=== PATIENT | male | born 1960 | race Caucasian/White ===

== ENCOUNTER 2020-09-09 08:39 | Outpatient (REF) | payer BC, SELFPAY ==
--- NOTE | 2020-09-09 08:43 | CT_ITS ---
EXAMINATION: CT CHEST SCREENING CLINICAL INFORMATION: Nicotine dependence COMPARISON: CT chest 09/03/2019 TECHNIQUE: Multidetector volumetric CT imaging of the chest is performed without contrast using low dose technique. Additional 2D coronal and sagittal reformatted images and axial 3D maximum intensity projection (MIP) images are generated on the CT workstation. This CT examination was performed using dose optimization techniques as appropriate, variously including the following: *Automated exposure control *Adjustment of mA and/or kV according to patient size (this includes techniques or standardized protocols for targeted exams where dose is matched to indication/reason for exam; i.e. extremities or head) *Use of iterative reconstruction technique DLP: 53 mGy-cm FINDINGS: LUNGS: The lungs are well expanded and clear of acute pneumonic process. There are 1 mm scattered calcified granulomas most prominent in both lower lobes which are stable. No pulmonary nodule, mass or ground-glass density seen. MEDIASTINUM: The central trachea and the bronchi are widely patent. The thyroid lobes are symmetrical and normal. Heart size and the great vessels are normal caliber. No abnormal size mediastinal or hilar lymph nodes seen. There are coronary artery vascular calcifications. PLEURA: There is no pleural effusion. No pleural mass or thickening. AXILLA: No lymphadenopathy. UPPER ABDOMEN: Visualized liver, spleen, pancreas and bilateral adrenal glands are unremarkable. OSSEOUS STRUCTURES: No lytic or sclerotic process seen. CT/CT lung screening IMPRESSION: Stable tiny calcified pulmonary nodules. No new nodules or acute process seen. ASSESSMENT: Lung-RADS category 2: Benign RECOMMENDATION: Low dose annual CT screening
== END 2020-09-09 08:40 | disposition home or self-care (01) ==
LOC: HO.CT 08:39
PROVIDERS: Visit Provider Physician Assistant Medical
DX: Z12.2 Encounter for screening for malignant neoplasm of respiratory organs (principal); Z87.891 Personal history of nicotine dependence
CPT/HCPCS: 71271

== ENCOUNTER 2020-10-20 07:28 | Outpatient (REF) | payer BC, SELFPAY ==
[2020-10-20 11:24] LABS: MANUAL DIFF FLAG NO
[2020-10-20 11:32] LABS: Basophils Absolute Auto 0.1 X10*3/uL (0.0-0.2); Eosinophils Absolute Auto 0.2 X10*3/uL (0.0-0.4); Eosinophils Percent Auto 5.3 % (0-4); Hematocrit 41.6 % (42-52); Imm Gran Abs Auto 0.01 X10*3/uL (0.00-0.03); Imm Gran Pct Auto 0.2 % (0.0-0.4); Lymphocytes Absolute Auto 2.1 X10*3/uL (1.2-4.9); Lymphocytes Percent Auto 45.1 % (20-40); Mean Corpuscular HGB Conc 33.7 g/dl (31.0-36.0); Mean Corpuscular Hemoglobin 31.3 pg (27.0-33.0); Mean Corpuscular Volume 93.1 fL (80-98); Mean Platelet Volume 9.6 fL (9.4-12.4); Monocytes Absolute Auto 0.5 X10*3/uL (0.1-1.2); Monocytes Percent Auto 10.5 % (2-11); Neutrophils Absolute Auto 1.7 X10*3/uL (2.0-8.3); Neutrophils Percent Auto 36.9 % (45-73); Platelet Count 333 X10*3/uL (160-400); Red Blood Count 4.47 X10*6/uL (4.60-5.80); Red Cell Distribution Width 12.2 % (11.0-16.0); White Blood Count 4.6 X10*3/uL (4.8-10.8)
[2020-10-20 12:19] LABS: Alanine Aminotransferase 9 U/L (0-40); Albumin Level 4.4 g/dL (3.5-5.0); Alkaline Phosphatase 55 U/L (39-117); Anion Gap 13 (12-20); Aspartate Amino Transferase 15 U/L (5-37); Bilirubin Total 0.8 mg/dL (0.0-1.0); Blood Urea Nitrogen 14 mg/dL (9-16); Calcium 9.2 mg/dL (8.4-10.2); Carbon Dioxide 26 mmol/L (22-29); Chloride 107 mmol/L (96-108); Cholesterol 210 mg/dL; Estimated Glomerular Filt Rate > 60; Glucose Fasting 84 mg/dL (60-99); HDL Cholesterol 51 mg/dL; LDL Cholesterol Calculated 141 mg/dl; Potassium 4.9 mmol/L (3.3-5.1); Sodium 141 mmol/L (135-145); Total Protein 6.8 g/dL (6.5-8.0); Triglycerides 92 mg/dL
[2020-10-20 12:33] LABS: Free T4 (Free Thyroxine) 0.99 ng/dL (0.71-1.85); Thyroid Stimulating Hormone 1.05 uIU/mL (0.32-4.0)
== END 2020-10-20 07:29 | disposition home or self-care (01) ==
LOC: HO.MANLDS 07:28
PROVIDERS: PCP Internal Medicine; Visit Provider Physician Assistant
DX: E03.9 Hypothyroidism, unspecified (principal); E78.5 Hyperlipidemia, unspecified
CPT/HCPCS: 36415; 80053; 80061; 84439; 84443; 85025

== ENCOUNTER 2021-01-12 09:56 | Outpatient (REF) | payer BC, SELFPAY ==
[2021-01-12 11:18] LABS: MANUAL DIFF FLAG NO
[2021-01-12 11:29] LABS: Basophils Absolute Auto 0.1 X10*3/uL (0.0-0.2); Basophils Percent Auto 1.1 % (0-2); Eosinophils Absolute Auto 0.2 X10*3/uL (0.0-0.4); Hematocrit 42.1 % (42-52); Hemoglobin 14.3 g/dl (14.0-18.0); Imm Gran Abs Auto 0.01 X10*3/uL (0.00-0.03); Imm Gran Pct Auto 0.2 % (0.0-0.4); Lymphocytes Absolute Auto 2.1 X10*3/uL (1.2-4.9); Lymphocytes Percent Auto 37.4 % (20-40); Mean Corpuscular Volume 91.3 fL (80-98); Mean Platelet Volume 9.2 fL (9.4-12.4); Monocytes Absolute Auto 0.4 X10*3/uL (0.1-1.2); Monocytes Percent Auto 7.2 % (2-11); Neutrophils Absolute Auto 2.9 X10*3/uL (2.0-8.3); Neutrophils Percent Auto 50.1 % (45-73); Platelet Count 320 X10*3/uL (160-400); Red Blood Count 4.61 X10*6/uL (4.60-5.80); Red Cell Distribution Width 12.1 % (11.0-16.0); White Blood Count 5.7 X10*3/uL (4.8-10.8)
[2021-01-12 12:04] LABS: Alanine Aminotransferase 11 U/L (0-40); Albumin Level 4.5 g/dL (3.5-5.0); Alkaline Phosphatase 59 U/L (39-117); Amylase 66 U/L (28-100); Anion Gap 12 (12-20); Aspartate Amino Transferase 17 U/L (5-37); Bilirubin Direct 0.2 mg/dL (0.0-0.5); Bilirubin Total 0.6 mg/dL (0.0-1.0); Blood Urea Nitrogen 13 mg/dL (9-16); Calcium 9.4 mg/dL (8.4-10.2); Carbon Dioxide 24 mmol/L (22-29); Chloride 107 mmol/L (96-108); Estimated Glomerular Filt Rate > 60; Glucose Random 96 mg/dL (60-115); Iron 73 mcg/dL (45-160); Lipase 17 U/L (8-78); Percent Iron Saturation 24 % (15-50); Potassium 4.4 mmol/L (3.3-5.1); Sodium 139 mmol/L (135-145); Total Iron Binding Capacity 309 mcg/dL (228-428); Total Protein 6.9 g/dL (6.5-8.0); Unsaturated Iron Binding 236 ug/dL
[2021-01-12 12:29] LABS: Ferritin 250 ng/mL (20-250); Free T4 (Free Thyroxine) 0.98 ng/dL (0.71-1.85); Thyroid Stimulating Hormone 1.12 uIU/mL (0.32-4.0)
[2021-01-13 08:12] LABS: HBS Num1 0.29 mIU/mL (0-7.99); HBc Num1 0.14 S/CO (0.00-0.79); Hepatitis B Core Antibody Nonreactive (Nonreactive); ~Hepatitis B Surface Antibody NONREACTIVE (Nonreactive)
[2021-01-13 08:37] LABS: Hepatitis A Antibody IgM 0.16 Index (0-0.79); Hepatitis B Surface Antigen Negative (Negative); ~HepC Num1 0.12 S/CO (0.00-0.79); ~Hepatitis A Antibody IgM Nonreactive (Nonreactive); ~Hepatitis C Antibody Nonreactive (Nonreactive)
== END 2021-01-12 09:57 | disposition home or self-care (01) ==
LOC: HO.MANLDS 09:56
PROVIDERS: PCP Internal Medicine; Visit Provider Physician Assistant
DX: Z01.84 Encounter for antibody response examination (principal); R63.4 Abnormal weight loss; K21.9 Gastro-esophageal reflux disease without esophagitis
CPT/HCPCS: 36415; 80053; 80076; 82150; 82248; 82728; 83540; 83690; 84439; 84443; 85025; 86704; 86706; 86709; 86803; 87340

== ENCOUNTER 2021-11-02 09:23 | Outpatient (REF) | payer BC, SELFPAY ==
[2021-11-02 11:27] LABS: MANUAL DIFF FLAG NO
[2021-11-02 11:37] LABS: Basophils Absolute Auto 0.1 X10*3/uL (0.0-0.2); Basophils Percent Auto 1.3 % (0-2); Eosinophils Absolute Auto 0.3 X10*3/uL (0.0-0.4); Eosinophils Percent Auto 5.1 % (0-4); Hematocrit 43.7 % (42.0-52.0); Hemoglobin 14.7 g/dl (14.0-18.0); Imm Gran Abs Auto 0.01 X10*3/uL (0.00-0.03); Imm Gran Pct Auto 0.2 % (0.0-0.4); Lymphocytes Absolute Auto 2.2 X10*3/uL (1.2-4.9); Lymphocytes Percent Auto 41.1 % (20-40); Mean Corpuscular HGB Conc 33.6 g/dl (31.0-36.0); Mean Corpuscular Hemoglobin 30.8 pg (27.0-33.0); Mean Corpuscular Volume 91.6 fL (80.0-98.0); Mean Platelet Volume 9.3 fL (9.4-12.4); Monocytes Absolute Auto 0.4 X10*3/uL (0.1-1.2); Neutrophils Absolute Auto 2.3 x10*3/uL (2.0-8.3); Neutrophils Percent Auto 44.3 % (45-73); Platelet Count 357 X10*3/uL (160-400); Red Blood Count 4.77 X10*6/uL (4.60-5.80); Red Cell Distribution Width 12.4 % (11.0-16.0); White Blood Count 5.3 X10*3/uL (4.8-10.8)
[2021-11-02 11:50] LABS: Alanine Aminotransferase 9 U/L (0-40); Albumin Level 4.6 g/dL (3.5-5.0); Alkaline Phosphatase 63 U/L (39-117); Anion Gap 12 (12-20); Aspartate Amino Transferase 17 U/L (5-37); Bilirubin Total 0.8 mg/dL (0.0-1.0); Blood Urea Nitrogen 17 mg/dL (9-16); Calcium 10.1 mg/dL (8.4-10.2); Carbon Dioxide 29 mmol/L (22-29); Chloride 104 mmol/L (96-108); Estimated Glomerular Filt Rate > 60; Glucose Random 91 mg/dL (60-115); Potassium 4.6 mmol/L (3.3-5.1); Sodium 140 mmol/L (135-145); Total Protein 7.2 g/dL (6.5-8.0)
[2021-11-02 12:20] LABS: Free T4 (Free Thyroxine) 1.02 ng/dL (0.71-1.85); Prostate Specific Antigen 1.82 ng/mL (<0.05-4.0); Thyroid Stimulating Hormone 0.94 uIU/mL (0.32-4.0)
== END 2021-11-02 09:24 | disposition home or self-care (01) ==
LOC: HO.MANLDS 09:23
PROVIDERS: PCP Physician Assistant; Visit Provider Physician Assistant
DX: E03.8 Other specified hypothyroidism (principal); N40.1 Benign prostatic hyperplasia with lower urinary tract symptoms; N13.8 Other obstructive and reflux uropathy; E78.2 Mixed hyperlipidemia; Z12.5 Encounter for screening for malignant neoplasm of prostate
CPT/HCPCS: 36415; 80053; 84153; 84439; 84443; 85025

== ENCOUNTER 2022-02-08 10:25 | Outpatient (REF) | payer BC, SELFPAY ==
[2022-02-08 12:55] LABS: MANUAL DIFF FLAG NO
[2022-02-08 12:57] LABS: Basophils Absolute Auto 0.1 X10*3/uL (0.0-0.2); Basophils Percent Auto 1.1 % (0-2); Eosinophils Absolute Auto 0.2 X10*3/uL (0.0-0.4); Eosinophils Percent Auto 4.1 % (0-4); Hemoglobin 14.5 g/dl (14.0-18.0); Imm Gran Abs Auto 0.01 X10*3/uL (0.00-0.03); Imm Gran Pct Auto 0.2 % (0.0-0.4); Lymphocytes Absolute Auto 2.1 X10*3/uL (1.2-4.9); Lymphocytes Percent Auto 40.2 % (20-40); Mean Corpuscular Hemoglobin 30.6 pg (27.0-33.0); Mean Corpuscular Volume 92.8 fL (80.0-98.0); Mean Platelet Volume 9.4 fL (9.4-12.4); Monocytes Absolute Auto 0.4 X10*3/uL (0.1-1.2); Monocytes Percent Auto 7.5 % (2-11); Neutrophils Absolute Auto 2.5 x10*3/uL (2.0-8.3); Neutrophils Percent Auto 46.9 % (45-73); Platelet Count 343 X10*3/uL (160-400); Red Blood Count 4.74 X10*6/uL (4.60-5.80); Red Cell Distribution Width 12.2 % (11.0-16.0); White Blood Count 5.3 X10*3/uL (4.8-10.8)
[2022-02-08 13:07] LABS: Alanine Aminotransferase 13 U/L (0-40); Albumin Level 4.6 g/dL (3.5-5.0); Alkaline Phosphatase 59 U/L (39-117); Anion Gap 13 (12-20); Aspartate Amino Transferase 17 U/L (5-37); Bilirubin Total 0.6 mg/dL (0.0-1.0); Blood Urea Nitrogen 13 mg/dL (9-16); C Reactive Protein 0.03 mg/dL (< or = 0.50); Calcium 10.1 mg/dL (8.4-10.2); Carbon Dioxide 27 mmol/L (22-29); Chloride 105 mmol/L (96-108); Estimated Glomerular Filt Rate > 60; Glucose Random 96 mg/dL (60-115); Potassium 5.2 mmol/L (3.3-5.1); Sodium 140 mmol/L (135-145)
[2022-02-08 13:27] LABS: Free T4 (Free Thyroxine) 1.03 ng/dL (0.71-1.85); Thyroid Stimulating Hormone 0.87 uIU/mL (0.32-4.0)
[2022-02-08 13:47] LABS: Erythrocyte Sedimentation Rate 2 MM/HR (0-15)
[2022-02-08 14:06] LABS: Estimated Average Glucose 111 mg/dL; Hemoglobin A1c % 5.5 %
[2022-02-09 15:47] LABS: Calcium (PTHI) 10.1 mg/dL (8.6-10.3); PTHI 69 pg/mL (16-77)
[2022-02-14 15:46] LABS: Testosterone, Free 64.3 pg/mL (35.0-155.0); Testosterone, Total 473 ng/dL (250-1100)
== END 2022-02-08 10:26 | disposition home or self-care (01) ==
LOC: HO.MANLDS 10:25
PROVIDERS: Visit Provider Physician Assistant
DX: R63.4 Abnormal weight loss (principal)
CPT/HCPCS: 36415; 80053; 83036; 83970; 84402; 84403; 84439; 84443; 85025; 85652; 86140

== ENCOUNTER 2022-03-22 08:26 | Outpatient (REF) | payer BC, SELFPAY ==
[2022-03-22 12:07] LABS: Vitamin B12 161 pg/mL (200-900)
== END 2022-03-22 08:27 | disposition home or self-care (01) ==
LOC: HO.MANLDS 08:26
PROVIDERS: PCP Internal Medicine; Visit Provider Internal Medicine
DX: R53.1 Weakness (principal); R20.0 Anesthesia of skin; R51.9 Headache, unspecified
CPT/HCPCS: 36415; 82550; 82607

== ENCOUNTER 2022-05-25 09:37 | Outpatient (REF) | payer BC, SELFPAY ==
[2022-05-25 12:03] LABS: Blood Urea Nitrogen 11 mg/dL (9-16); Estimated Glomerular Filt Rate > 60
[2022-05-25 12:28] LABS: Prostate Specific Antigen 1.58 ng/mL (<0.05-4.0)
[2022-05-25 13:10] LABS: Folate 16.7 ng/mL (> or = 4.0); Vitamin B12 484 pg/mL (200-900)
== END 2022-05-25 09:38 | disposition home or self-care (01) ==
LOC: HO.MANLDS 09:37
PROVIDERS: Urology; Visit Provider Physician Assistant
DX: Z12.5 Encounter for screening for malignant neoplasm of prostate (principal); E53.8 Deficiency of other specified B group vitamins; N40.1 Benign prostatic hyperplasia with lower urinary tract symptoms; R31.0 Gross hematuria
CPT/HCPCS: 36415; 82565; 82607; 82746; 84153; 84520

== ENCOUNTER 2022-06-28 10:09 | Outpatient (REF) | payer BC, SELFPAY ==
[2022-06-28 11:20] LABS: MANUAL DIFF FLAG NO
[2022-06-28 11:57] LABS: Basophils Absolute Auto 0.1 X10*3/uL (0.0-0.2); Basophils Percent Auto 1.8 % (0-2); Eosinophils Absolute Auto 0.1 X10*3/uL (0.0-0.4); Eosinophils Percent Auto 3.6 % (0-4); Hematocrit 39.3 % (42.0-52.0); Hemoglobin 13.1 g/dl (14.0-18.0); Imm Gran Abs Auto 0.01 X10*3/uL (0.00-0.03); Imm Gran Pct Auto 0.3 % (0.0-0.4); Lymphocytes Absolute Auto 1.7 X10*3/uL (1.2-4.9); Lymphocytes Percent Auto 42.3 % (20-40); Mean Corpuscular HGB Conc 33.3 g/dl (31.0-36.0); Mean Corpuscular Hemoglobin 30.5 pg (27.0-33.0); Mean Corpuscular Volume 91.4 fL (80.0-98.0); Mean Platelet Volume 9.2 fL (9.4-12.4); Monocytes Absolute Auto 0.4 X10*3/uL (0.1-1.2); Monocytes Percent Auto 10.2 % (2-11); Neutrophils Absolute Auto 1.6 x10*3/uL (2.0-8.3); Neutrophils Percent Auto 41.8 % (45-73); Platelet Count 350 X10*3/uL (160-400); Red Cell Distribution Width 12.5 % (11.0-16.0); White Blood Count 3.9 X10*3/uL (4.8-10.8)
[2022-06-28 12:02] LABS: Magnesium 2.1 mg/dL (1.6-2.6)
[2022-06-28 12:26] LABS: Ferritin 226 ng/mL (20-250); Vitamin D 25-OH Total 36.7 ng/mL (>30)
[2022-06-28 12:41] LABS: Folate 14.5 ng/mL (> or = 4.0); Vitamin B12 518 pg/mL (200-900)
[2022-07-01 05:02] LABS: Zinc 65 mcg/dL (60-130)
[2022-07-01 18:32] LABS: Beta-Gamma Tocopherol 1.8 mg/L (<=4.3)
[2022-07-05 17:32] LABS: Vitamin A 57 mcg/dL (38-98)
== END 2022-06-28 10:10 | disposition home or self-care (01) ==
LOC: HO.MANLDS 10:09
PROVIDERS: PCP Internal Medicine; Referring Provider Physician Assistant; Visit Provider Internal Medicine
DX: D51.0 Vitamin B12 deficiency anemia due to intrinsic factor deficiency (principal); K29.40 Chronic atrophic gastritis without bleeding; R63.4 Abnormal weight loss; K90.9 Intestinal malabsorption, unspecified
CPT/HCPCS: 36415; 82306; 82607; 82728; 82746; 83735; 84446; 84590; 84630; 85025

== ENCOUNTER 2024-10-09 11:28 | Outpatient (REF) | payer BC, SELFPAY ==
--- OUTSIDE RECORDS SUMMARY | 2024-10-09 13:23 | XMS_ITS | Data Portability ---
Author Organization [facility] Home Service Address [address] [place] [address] Assessment No assessment recorded. Plan of Treatment Reminders Order Date Submit Date Provider Last Modified By Organization Details Last Modified Time Details Appointments ANNUAL EXAM 2024 09:00A JOSTIN DORMAN Not available Not available Not available Lab CMP, serum or plasma 2021 [facility], [address] [place] [address], [id number], 11/03/2021 13:08:24 CBC w/ auto diff 2021 [facility], [address] [place] [address], [id number], 11/02/2021 09:15:27 TSH + free T4, serum 2021 [facility], [address] [place] [address], [id number], 11/02/2021 09:15:26 PSA, serum or plasma 2021 [facility], [address] [place] [address], [address], 11/02/2021 09:15:26 CMP, serum or plasma 2021 [facility], [address] [place] [address], [address], 02/09/2022 12:32:31 CBC w/ auto diff 2021 [facility], [address] [place] [address], [address], 02/09/2022 12:32:31 TSH + free T4, serum 2021 [facility], [address] [place] [address], [address], 02/09/2022 12:32:31 HbA1c (hemoglob in A1c), blood 2021 [facility], [address] [place] [address], [address], 02/08/2022 10:15:26 testoster one, free + total, serum 2021 [facility], [address] [place] [address], 35[address], 02/15/2022 11:51:51 ESR (erythroc yte sedimenta tion rate), blood 2021 [facility], [address] [place] [address], [address], 02/08/2022 10:15:26 C-reactiv e protein, quantitat justus, serum or plasma 2021 [facility], [address] [place] [address], [address], 02/08/2022 10:15:26 PTH (parathyr oid hormone), intact + calcium, serum or plasma 2021 [facility], [address] [place] [address], [address], 02/10/2022 12:06:48 iron + TIBC + ferritin, serum 2023 024 [email or web address] [facility], [address] [place] [address], 88[address], 10/09/2023 09:21:28 lipid panel, blood 2023 024 [facility], [address] [place] [address], [address], 10/12/2023 12:54:56 HbA1c (hemoglob in A1c), blood 2023 024 [facility], [address], [address], [place], [address], 10/09/2023 09:21:30 CBC w/ auto diff 2023 024 [facility], [address] [place] [address], [place], [address], 10/12/2023 12:27:45 CMP, serum or plasma 2023 024 [facility], [address] [place] [address], [address], 10/12/2023 14:15:27 TSH + free T4, serum 2023 024 [facility], [address] [place] [address], [address], 10/09/2023 09:21:28 Referral physical therapist referral 2021 022 [facility], [address] [place] [address], [address], 11/03/2021 09:08:49 Procedures None recorded. Surgeries None recorded. Imaging XR, chest, 2 view 2021 022 [facility], [address] [place], [address], 02/10/2022 11:22:58 CT, abdomen + pelvis, w/o contrast 2021 022 [email or web address] 10 [facility], [address], [address], 03/07/2022 08:17:19 XR, hip, unilatera l, 2 or 3 view - right hip 2022 023 [facility], [address] [place], [address], 03/01/2023 08:50:55 XR, lumbosacr al spine, 4 or more view [address] [facility], [address] [place], [address], 10/23/2023 08:19:39 LDCT, chest, for lung cancer screening - needs routine screening given smoking hx 20+ years quit at 50 y/o [address] [facility], [address] [place], [address], 10/11/2023 14:47:26 Medication Orders levothyro xine 88 mcg tablet [address] [facility], [address] [place], [address], 11/02/2021 09:09:18 tamsulosi n 0.4 mg capsule [address] [facility], [address] [place], [address], 02/16/2022 09:14:02 Patient TargetsNo targets recorded. Patient InstructionsNo instructions recorded. Reason for Referral Physical Therapist Referral for Bilateral shoulder joint pain bilateral shoulder pain due to OA Referring Physician: Eusebia Mccurdy, Internal Medicine, Encounter Date: 11/02/2021 Results Created Date Observation Date Name Description Value Unit Range Abnormal Flag Note LastModifiedBy Organization Detail LastModifiedTime 02/11/2002/10/2022 XR, chest , 2 view No observ ation record ed. [email or web address] [facility] [address] [place], [address], 02/10/2022 18:34:16 03/13/20 22 03/11/2022 nerve condu ction study No observ ation record ed. [facility] [address], [place], [address], 03/14/2022 09:05:43 03/01/20 23 03/01/2023 XR, hip, unila teral , 2 or 3 view No observ ation record ed. [facility] [address], [place], [address], 03/01/2023 13:26:14 08/24/20 23 08/19/2023 MRI, prost ate, w/ contr ast No observ ation record ed. [facility] ([facility]) [address], [place], [address], 08/25/2023 08:34:27 12/05/19 24 12/05/2023 LDCT, chest , for lung cance r scree axel No observ ation record ed. [email or web address] [facility] [address], [place], [address], 12/05/2023 15:26:48 Result Notes None recorded. Problems Name Problem SNOMED Code Status Onset Date Resolution Date Notes Provider Name and Address Organization Details Recorded Time Hyperthy roidism 63195714 Active 2020 Grave's disease treated in 2005 Not Available [facility] 3 12:28:55 Adrenal mass 914725837 Active 2020 Not Available [facility] 3 12:28:55 Rosacea 050501610 Active 2020 in his eyes Not Available [facility] 3 12:28:55 Unintent ional weight loss 430743268 Active 2020 onset 10/03/17 Not Available [facility] 3 12:28:55 Hyperlip idemia 92175927 Active 2020 Not Available [facility] 3 12:28:55 Hypothyr oidism 87129679 Active 2020 [facility] Available [facility] 12:28:55 Benign prostati c hyperpla anselmo 535892612 Active 2020 Not Available [facility] 3 12:28:55 Migraine 88759141 Active 2020 with aura Not Available [facility] 3 12:28:55 Idiopath ic hypotens ion 463783299 Active 2020 intermitt ent Not Available [facility] 3 12:28:54 Adenomat ous polyp of colon 626547978 Active 2020 High risk cancer screening per patient Not Available [facility] 3 12:28:55 Abnormal weight loss 545128876 Active 2021 Not Available [facility] 3 12:28:55 Unexplai amor weight loss 791017058 Active 2021 Not Available [facility] 3 12:28:55 Joselo hematuri a 198614697 Active 2021 Not Available [facility] 3 12:28:54 Cobalami n deficien cy 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 Active 2021 Not Available [facility] 3 12:28:54 Pain in right hip joint 06388413794 9102 Active 2022 Not Available [facility] 3 12:28:55 Arthriti s of right hip 48157213998 27050 Active 2022 Not Available [facility] 3 12:28:54 Hemorrho ids 76293768 Active 2022 JOSTIN HERNANDEZ [address] [place], [address], [facility] 3 12:16:06 Night sweats 30305678 Active 2023 JOSTIN HERNANDEZ [address] [place], [address], [facility] 4 09:02:17 Intolera nt of cold 97314158 Active 2023 JOSTIN HERNANDEZ [address] [place], [address], [facility] 4 09:10:23 Bilatera l sacral insuffic iency fracture 59374074257 088426 Active 2023 JOSTIN HERNANDEZ [address] [place], [address], [facility] 4 09:17:21 Candidia sis of skin 60022906 Active 2023 JOSTIN HERNANDEZ [address] [place], [address], [facility] 4 15:36:13 Pain of bilatera l knee joints 54529547825 4104 Active 2023 JOSTIN HERNANDEZ [address] [place], [address], [facility] 4 14:57:39 Problem Notes None recorded. Procedures Surgical History Date Name Laterality Status Provider Name and Address Organization Details Recorded Time repair of umbilical hernia completed Loripeter Kemp [facility] 09/09/2020 16:41:47 Gastrointestinal Surgery [facility]16[facility] 10:37:00 Thyroid Surgery completed Loripeter Kemp [facility] 09/16/2020 10:37:00 Tonsillectomy completed Loripeter Kemp [facility] 09/16/2020 10:37:00 Hernia Repair completed Loripeter Kemp [facility] 09/16/2020 10:37:00 Appendectomy completed Loripeter Kemp [facility] 09/16/2020 10:37:00 Laparoscopy completed Lori Kemp [facility] 09/16/2020 10:37:00 Colonoscopy completed Loripeter Kemp [facility] 09/16/2020 10:37:00 Eye Surgery completed [facility] Justo [facility] 09/16/2020 10:37:00 Imaging Results Imaging Date Name Status LastModified by Organiz ation Details LastModified Time 02/10/2022 XR, chest, 2 view completed [email or web address] [facility] [address] [place], [address], 02/10/2022 18:34:16 03/11/2022 nerve conduction study completed [facility] [address], [place], [address], 03/14/2022 09:05:43 03/01/2023 XR, hip, unilateral, 2 or 3 view completed [facility] [address] [place], [address], 03/01/2023 13:26:14 08/19/2023 MRI, prostate, w/ contrast completed [facility] ([facility]) [address] [place], [address], 08/25/2023 08:34:27 12/05/2023 LDCT, chest, for lung cancer screening completed [email or web address] [facility] [address], [place], [address], 12/05/2023 15:26:48 Procedure Notes None recorded. Medical Equipment None Reported. Allergies No known drug allergies Medications Name Sig Start Date Stop Date Status Note LastModified by Organization Details LastModified Time ivermectin 3 mg tablet TAKE 4 TABLETS BY MOUTH AT ONCE active Not Available Not Available No t Available meloxicam 15 mg tablet TAKE 1 TABLET EVERY DAY BY ORAL ROUTE WITH MEAL(S) FOR 30 DAYS, FOR KNEE PAIN. 2023 active Not Available Not Available Not Avai lable doxycycline hyclate 50 mg capsule TAKE 1 CAPSULE BY MOUTH ONCE DAILY WITH FOOD & WATER FOR 2 MONTHS AT ONSET OF FLARE. active Not Available Not Available No t Available ciprofloxac in 500 mg tablet TAKE 1 TABLET BY MOUTH EVERY MORNING AND EVERY EVENING 10/09 completed Not Available Not Available Not Available levothyroxi ne 88 mcg tablet TAKE 1 TABLET BY MOUTH EVERY DAY 2023 active Not Available Not Available Not Avai lable tamsulosin 0.4 mg capsule Take 1 capsule every day by oral route for 30 days. 02/16 completed Not Available Not Available Not Available doxycycline monohydrate 100 mg capsule TAKE 1 CAPSULE BY MOUTH TWICE A DAY FOR 10 DAYS 10/09 completed Not Available Not Available Not Available clotrimazol e-betametha sone 1 %-0.05 % topical cream PLEASE SEE ATTACHED FOR DETAILED DIRECTION S active Not Available Not Available No t Available metronidazo le 0.75 % topical cream APPLY TWICE DAILY TO ENTIRE FACE FOR ROSACEA. 03/27 completed Not Available Not Available Not Available finasteride 5 mg tablet TAKE 1 TABLET BY MOUTH EVERY DAY active Not Available Not Available No t Available oxycodone 5 mg tablet TAKE 1 TABLET (5 MG TOTAL) BY MOUTH EVERY 6 HOURS NEEDED (PARTIAL FILL OKAY) 02/27 completed Not Available Not Available Not Available alfuzosin ER 10 mg tablet,exte nded release 24 hr TAKE 1 TABLET BY MOUTH EVERYDAY AT BEDTIME active Not Available Not Available No t Available Vitamin C 500mg bid active Not Available Not Available Not Available Vitamin D3 1000 unit bid in the winter active Not Available Not Available No t Available Xifaxan 550 mg tablet TAKE 1 TABLET BY MOUTH THREE TIMES A DAY FOR 2 WEEKS 02/27 completed Not Available Not Available Not Available Afluria Qd 2019- (36 mos up)(PF)60 mcg (15 mcg x4)/0.5 mL IM syringe PHARMACY ADMINIST[facility] 01/12 completed Not Available Not Available Not Available Vitals Date Recorded Body height Body mass index (BMI) Body weight Heart rate Oxygen saturation Oxygen saturation in Arterial blood by Pulse oximetry Systolic blood pressure Diastolic blood pressure Provider Name and Address Organization Details Last Updated DateTime 1 181.61 cm 24 kg/m2 09287.2 3 g 57 /min 98 % 98 % 120 mm[Hg] 74 mm[Hg] Yaniv Choe, DO [address] [place], [address] [place] - [facility] 1 09:28:38 Date Recorded Body height Body mass index (BMI) Body weight Oxygen saturation Oxygen saturation in Arterial blood by Pulse oximetry Heart rate Systolic blood pressure Diastolic blood pressure Provider Name and Address Organization Details Last Updated DateTime 2 181.61 cm 23.4 kg/m2 91867.7 g 98 % 98 % 64 /min 128 mm[Hg] 70 mm[Hg] Rose Boyd [facility] 2 09:02:07 Date Recorded Body height Body mass index (BMI) Body weight Oxygen saturation Oxygen saturation in Arterial blood by Pulse oximetry Heart rate Systolic blood pressure Diastolic blood pressure Provider Name and Address Organization Details Last Updated DateTime 2 181.61 cm 23 kg/m2 08529.9 3 g 98 % 98 % 72 /min 120 mm[Hg] 78 mm[Hg] Rose Boyd [facility] 2 09:50:27 Date Recorded Body height Body mass index (BMI) Body weight Heart rate Oxygen saturation Oxygen saturation in Arterial blood by Pulse oximetry Systolic blood pressure Diastolic blood pressure Provider Name and Address Organization Details Last Updated DateTime 3 167.64 cm 27 kg/m2 54460.9 3 g 66 /min 97 % 97 % 120 mm[Hg] 80 mm[Hg] Masha Merino [facility] 3 10:43:45 Date Recorded Body height Body mass index (BMI) Body weight Heart rate Oxygen saturation Oxygen saturation in Arterial blood by Pulse oximetry Systolic blood pressure Diastolic blood pressure Provider Name and Address Organization Details Last Updated DateTime 4 167.64 cm 28.2 kg/m2 36386.6 6 g 62 /min 98 % 98 % 130 mm[Hg] 68 mm[Hg] Masha Merino [facility] 4 08:58:50 Social History Question Answer Notes LastModified by Organizat ion Details LastModified Time Tobacco Smoking Status Former Smoker Lori garcia [facility] 09/16/2020 10:36:52 What Is Your Level Of Alcohol Consumption? Moderate Information not available 09/16/2020 Are You Blind Or Do You Have Difficulty Seeing? No Information not available 09/16/2020 What Is Your Level Of Caffeine Consumption? Moderate Information not available 09/16/2020 How Much Tobacco Do You Chew? None Information not available 09/16/2020 Are You Currently Employed? Yes Information not available 09/16/2020 Are You Deaf Or Do You Have Serious Difficulty Hearing? No Information not available 09/16/2020 What Type Of Diet Are You Following? REGULAR Information not available 09/16/2020 Which Illicit Or Recreational Drugs Have You Used? Used To Information not available 09/16/2020 Education 12 [email or web address] Information not available 02/08/2022 What Is Your Occupation? Retired But [employer] Information not available 09/16/2020 How Many Days Of Moderate To Strenuous Exercise, Like A Brisk Walk, Did You Do In The Last 7 Days? 7 Information not available 09/16/2020 On Those Days That You Engage In Moderate To Strenuous Exercise, How Many Minutes, On Average, Do You Exercise? 80 Information not available 09/16/2020 Are There Any Guns Present In Your Home? No Information not available 09/16/2020 Hard Of Hearing Or Deaf In One Or Both Ears? No [email or web address] Information not available 02/08/2022 Live Alone Or With Others? With Others [email or web address] Information not available 02/08/2022 What Was The Date Of Your Most Recent Tobacco Screening? 10/09/2023 Information not available 10/09/2023 How Many Children Do You Have? 0 Information not available 09/16/2020 Performs Monthly Self-breast Exam? No [email or web address] Information no t available 02/08/2022 Seat Belts Used Routinely Yes [email or web address] Information not available 02/08/2022 Are You Sexually Active? Yes Information not available 09/16/2020 Smoke Alarm In Home Yes [email or web address] Information not available 02/08/2022 At What Age Did You Start Smoking Tobacco? 13 Information not available 09/16/2020 Are You Passively Exposed To Smoke? No Information no t available 09/16/2020 How Much Tobacco Do You Smoke? No Information not available 09/16/2020 General Stress Level Medium [email or web address] Information not available 02/08/2022 Do You Use Sunscreen Routinely? No Information not available 09/16/2020 How Many Years Have You Smoked Tobacco? 37 Information not available 09/16/2020 Do You Or Have You Ever Used Any Other Forms Of Tobacco Or Nicotine? No [email or web address] Information not available 10/09/2023 Sex: Unknown Functional Status Question Answer Note LastModified by Organizat ion Details LastModified Time Do you have difficulty walking or climbing stairs? No Information not available 09/16/2020 Are you able to walk? YESWOREST Information not available 09/16/2020 Do you have difficulty doing errands alone? No Information not available 09/16/2020 Are you able to care for yourself? Yes Information not available 09/16/2020 Do you have difficulty dressing or bathing? No Information not available 09/16/2020 What is your exercise level? Moderate Information not available 09/16/2020 Mental Status Question Answer Note LastModified by Organization D etails LastModified Time Do you have difficulty concentrating, remembering or making decisions? No Information no t available 09/16/2020 Family History Relationship Description Onset Age of this Age Resolved Age Notes LastModified by Organization Details LastModified Time Mother Glaucoma [email or web address] Not available 0 09/16/2020 10:36:33 Mother Malignant tumor of lung [email or web address] Not available 2020 10:36:33 Father Alcoholism [email or web address] Not available 09/16/2020 10:36:33 Medical History Condition Response Other Y Vision or Eye Problems Y High Cholesterol Y Headaches Y Thyroid Problems Y Reflux/GERD Y Immunizations Vaccine Type Date Status Note Provider Nam e and Address Organization Details Recorded Time zoster recombinant 2 completed Kami garcia [facility] 02/08/2022 09:43:46 COVID-19, mRNA, LNP-S, PF, 30 mcg/0.3 mL dose 1 completed Kami garcia [facility] 02/08/2022 09:43:46 COVID-19, mRNA, LNP-S, PF, 30 mcg/0.3 mL dose 1 erasmo garcia [facility] 02/08/2022 09:43:46 COVID-19, mRNA, LNP-S, PF, 100 mcg/0.5mL dose or 50 mcg/0.25mL dose 1 [facility] 09:43:46 Influenza, split virus, quadrivalent, preservative 9 completed Kami garcia, [facility] 02/08/2022 09:43:46 Influenza, split virus, quadrivalent, preservative 0 completed Kami garcia, [facility] 02/08/2022 09:43:46 Influenza, split virus, quadrivalent, preservative 1 [facility]/08/2022 09:43:46 Td(adult) unspecified formulation 1 [facility] 02/08/2022 09:43:46 zoster, unspecified formulation 2 [facility] 02/08/2022 09:43:46 Influenza, split virus, quadrivalent, preservative 2 completed Yaniv Choe, [address] [place] [address], [address], [facility] 06/09/2022 20:30:02 COVID-19, mRNA, LNP-S, PF, 100 mcg/0.5mL dose or 50 mcg/0.25mL dose 2 completed Yaniv Choe DO [address] [place] [address], [address], [facility] 06/09/2022 20:30:13 influenza nasal, unspecified formulation 3 completed [facility] 05/02/2023 13:24:19 influenza, unspecified formulation 4 [facility] 05/15/2024 14:30:53 Tdap 2 [facility]/09/2020 16:34:38 Past Encounters Encounter ID Performer Location Encounter Start Date Encounter Closed Date Diagnosis/Indication Diagnosis SNOMED-CT Code Diagnosis ICD10 Code Diagnosis Note [id number] JOSTIN HERNANDEZ [facility] [address] [address] 09/16/2020 10:12:06 09/16/2020 11:23:34 Fatigue 04082604 R53.83 will assess if related to sleep apnea given symptoms and presentati on will fu after results Hypothyroidism 96368005 E03.9 hx of thyroid issues due to grave's and subsequent removal of his thyroid in total Adrenal mass 835336395 R 19.09 benign adrenal mass found incidental on scan for other concern no changes or concerns from previous doctor no interventi on needed at this time Hyperlipidemia 88472279 E78.5 needs follow up labs does not do well on statin medication due to side effects so usually just monitors it patient would rather not be on medication Benign pro static hyperplasia 628093289 N40.1 frequent urination, discussed medication options and meanings related to possible BPH the patient will think about this and let me know if he is interested in medication s or seeing urology [id number] JOSTIN HERNANDEZ [facility] [address] [address] 01/12/2021 09:22:05 01/12/2021 13:34:59 Unintentional weight loss 926717834 R63.4 will fu with complete work up Gastroesop hageal reflux disease 087512067 K21.9 will fu with labs Epigastric pain 74172468 R10.13 will fu with US and breath test given symptoms [id number] Yaniv Choe DO [facility] [address] [address] 03/16/2021 09:23:30 03/16/2021 10:29:45 Active or passive immunization 502454509 Z23 utd Adult heal th examination 547427850 Z00.00 stable and doing well as he is very active [id number] JOSTIN HERNANDEZ [facility] [address] [address] 11/02/2021 08:54:50 11/02/2021 13:39:11 Hypothyroidism 26000534 E03.8 will fu with lab work Benign pro static hyperplasia 773183762 N40.1 frequent urination, discussed medication options and meanings related to possible BPH the patient will think about this and let me know if he is interested in medication s or seeing urology Hyperlipidemia 43261970 E78.2 will fu with lab work Bilateral shoulder joint pain 6665517308 2581178 M25.512 [place] [id number] JOSTIN HERNANDEZ [facility] [address] [facility] [address] [address] 02/08/2022 09:41:37 02/08/2022 10:19:14 Unintentional weight loss 524069182 R63.4 will fu with full weight loss panelmay also need work up for possible MS given muscle wasting, weakness Benign pro static hyperplasia 362476226 N40.1 will given flomax a try [id number] JOSTIN HERNANDEZ [facility] [address] [facility] [address] [address] 02/27/2023 10:37:40 02/27/2023 11:05:13 Pain in right hip joint 4775105972 26893 M25.551 will set up with XR to determine the cause of his painddx listed in HPIno other questions [id number] JOSTIN HERNANDEZ [facility] [address] [facility] [address] [place] [address] 10/09/2023 08:52:15 10/09/2023 11:14:37 Night sweats [id number] R61 possible issue with thyroid dosing Adult heal th examination [id number] Z00.00 stable BP Intolerant of cold 39041 000 R68.89 will set up with lab work for cold Bilateral sacral insufficiency fracture [id number] M84.38XA will fu with XR Ex-smoker [id number] Z87.89 1 due for screening Health Concerns Section Related Observation LastModified by Organization Detai ls LastModified Time None Recorded Concern Status LastModified by Organization Details LastModified Time None Recorded Advance Directives Directive None Recorded Payers Encounter Date Sequence Insurance Name Policy Number Policy Cook Covered Member ID Cook Member ID Guarantor Name 03/16/2021 1 [place] [facility] [place] [id number] Warren Chávez Amberly [id number] Warren J Amberly 11/02/2021 1 [place] [facility] [place] [id number] Warren Chávez Amberly [id number] Warren J Amberly 02/08/2022 1 [place] [facility] [place] [id number] Warren Chávez Amberly [id number] Warren J Amberly 02/27/2023 1 [place] [facility] [place] [id number] Warren Chávez Amberly [id number] Warren J Amberly 10/09/2023 1 [place] [facility] [place] [id number] Warren Chávez Amberly [id number] Warren Chávez Amberly Notes Date Note Type Note Provider Name a wi Address Organization Details Recorded Time 1 text/html Annual WellnessReported bypatient.Diet and Nutrition:healthy diet Fracture Risk:no history of fractures; no recent explained fracture; no sudden unexplained fractures; no previous musculoskeletal injuries Physical Activity:exercises on a regular basis; recent increase in physical activity; good physical condition Additional Lifestyle Factors:no tobacco use; no alcohol intake; stopped drinking alcohol Depression Risk:never feels sad, empty, or tearful; no loss of interest in activities; no significant changes in weight; no sleep disturbances or insomnia; no agitation; no loss of energy; no feelings of worthlessness or guilt; no thoughts of suicide; no history of depression; no history of mood disorders Hearing:no loss of hearing Vision:no vision problems has noted an unintentional wgt loss of about 30 lbs over the past several years Yaniv Choe, DO [address], [place], [address], [facility] 03/16/2021 09:57:50 2 text/html f/u medication hypothyroidism: needs recheck blood workstable for the past several years BPH: not interested in medication or urologywill check a PSA HLD: stable bilateral shoulder OA: will set up with PT no other concerns todayBP is excellent JOSTIN HERNANDEZ [address] [place], [address], [facility] 11/02/2021 09:24:54 2 text/html c/o unintentional weight loss and BPH the patient reports that he is continuing to loss weightthe patient is down from 167 pounds from 171 poundswill start with full work up with labs and CT abd/pelvis, CXR may need a CT head-MRI head for MS r/o and maybe consult with GI and neurology (possibly endo) for consult for further evaluation will fu with patient after work up is complete will also start on flomax for BPH, given a trial dose JOSTIN HERNANDEZ [address] [place], [address], [facility] 02/08/2022 10:18:56 3 text/html c/o right hip pain the patient reports for about the last month or two months the patient has been having right hip paindoes have a h/x of low back pain which he sees a chiropractor for and had his back adjusted; his back is good but his R hip at the femoral head he is having the pain the patient reports that the pain is a due constant ache pain with movement, worse with going up hillsradiates from the hip to the lateral side of the leg possible bursitis, cam impingement or labral tear pain with external and internal rotation negative straight leg raise test JOSTIN HERNANDEZ [address] [place], [address], [facility] 02/27/2023 11:06:10 4 text/html Annual WellnessReported bypatient.Diet and Nutrition:healthy diet; discussed vitamin and supplement use; discussed portion control; discussed maintaining calcium balance; discussed diet improvement Fracture Risk:no history of fractures; no recent explained fracture; no sudden unexplained fractures; no previous musculoskeletal injuries Physical Activity:exercises on a regular basis; recent increase in physical activity; good physical condition Additional Lifestyle Factors:no tobacco use; drinks alcohol (mild-moderate) Depression Risk:never feels sad, empty, or tearful; no loss of interest in activities; no significant changes in weight; no sleep disturbances or insomnia; no agitation; no loss of energy; no feelings of worthlessness or guilt; no thoughts of suicide; no history of depression; no history of mood disorders Hearing:no loss of hearing Vision:no vision problems abt 3 mos ago he had COVID-19 for the first timesymptoms included night sweats and respiratory symptoms it as not resolved will set up with testing JOSTIN HERNANDEZ [address] [place] [address], [phone], [facility] 10/09/2023 09:28:12
--- OUTSIDE RECORDS SUMMARY | 2024-10-09 13:23 | XMS_ITS | Data Portability ---
Author Organization [facility], [facility] Address [address] [place] [address] Care Team Providers Care Special Makeup Fx Artist Instructor Name Role Phone EDGAR PALMA Treadle Cut Off Saw Operator KRISTAIN GARCIA Sports Medicine D? PHUC BROWN Physical Therapist [facility] MARIANELA STUART Gas Burner Operator CATARINA DASH Carriage Rider SINAI HANSEN Primary Care Provider Assessment Encounter Date Assessment Date Assessment LastModified by Organization Details LastModified Time 10/01/2018 10/01/2018 Patient is here with ongoing soft stools that have not completely returned to normal. He was on Benefiber for quite some time and noticed that his stools were still quite soft. He has stopped the Benefiber, and is still going regularly. He started the Benefiber when he was moving his bowels only every 3-4 days. Now he is concerned about persistent looseness or softness of his stools. Dr. Mariano had worked him up for weight loss. I reviewed labs from March and May. I reviewed his colonoscopy from a year ago. Sjjswhsdh-bym-uro earing in no acute distress. Lungs are clear. Cardiac exam-regular rate and rhythm. Abdomen is soft and nontender without masses. Assessment-abdomi nal symptoms that sound more like irritable bowel syndrome. Plan-trial of probiotics. Check lab work to make sure we are not missing something more serious. Schedule follow-up with Dr. Mariano ongoing issues. He is comfortable with this plan. [email or web address] Not available 10/01/2018 09:40:30 04/15/2019 04/15/2019 1) Left shoulder x-ray showed some mild calcification on the humerus, indicating a possible soft tissue injury. Will refer for physical therapy 2) Hypothyroidism stable, last TSH 0.72 3) Discussed options for inguinal hernia surgery. He is currently asymptomatic but will refer for general surgery evaluation. Advised to go to ER if the hernia becomes trapped/painful 4) Encouraged to obtain shingrix vaccine at local pharmacy 5) F/u in 1 year [email or web address] Not available 04/15/2019 16:14:24 04/22/2019 04/22/2019 59 year old male with findings most consistent with acute bilateral shoulder pain, left greater than right, likely due to postural strain. Patient has functional limitation in their activities of daily living and exercise capacity. His primary limitations are with pushing, pulling, reaching, lifting, and carrying. Skilled physical therapy is indicated to safely and progressively address impairments and functional limitations as outlined below. Patient Goals: To return to usual activities without pain. Clinical Goals: 1. Demonstrate symmetric pain free active, passive and resisted motions of bilateralshoulder . 2. Demonstrate good postural habit. 3. Improve OPTIMAL score by 50% to demonstrate ability to perform daily activities with fewer limitations and less pain. 4. Demonstrate independence with HEP for scapular stabilization. Treatment Plan: Patient to return for 8 visits over 12 weeks. We expect significant change in pain, impairment and function in this time frame. Treatment to Include: Therapeutic exercise, manual therapy, patient education, HEP (initiated), modalities PRN. [email or web address] Not available 04/22/2019 14:23:54 Plan of Treatment Reminders Order Date Submit Date Provider Last Modified By Organization Details Last Modified Time Details Appointments Ultraso und 2024 10:30A [facility] Ultrasound Not available Not available Not available Lab CBC [address] [facility], [address] [place], [address], 10/01/2018 10:38:57 CMP, serum or plasma [address] [facility], [address] [place], [address], 10/01/2018 16:11:40 erythro cyte sedimen tation rate by natalie sheng method [address] [facility], [address] [place] [address], [address], 10/01/2018 12:01:03 C-react justus protein , quantit ative, serum or plasma [address] [facility], [address] [place] [address], [address], 10/01/2018 16:58:41 TSH, serum or plasma [address] [facility], [address] [place] [address], [address], 10/01/2018 16:53:36 TSH, serum or plasma [address] [facility], [address] [place] [address], [address], 11/05/2019 11:42:35 CMP, serum or plasma [address] [facility], [address] [place] [address], [address], 11/05/2019 12:51:[address] [facility], [address] [place] [address], [address], 11/05/2019 10:42:31 HbA1c (hemogl obin A1c), blood [address] [facility], [address] [place] [address], [address], 11/05/2019 11:08:33 amylase , serum or plasma [address] [facility], [address] [place] [address], [address], 11/05/2019 12:51:41 lipase, serum or plasma [address] [facility], [address] [place] [address], [address], 11/05/2019 12:51:40 PSA, serum or plasma [address] [facility], [address] [facility], [place], [address], 11/05/2019 11:16:46 lipid panel, serum [address] [facility], [address] [place], [address], 11/05/2019 12:51:39 Referral physica l therapi st referra l 2018 019 [facility], [address] , [place], [address], 04/17/2019 10:10:59 general surgeon referra l 2018 019 [facility], [address], [place], [address], 05/06/2019 10:52:31 Procedures None recorde d. Surgeries None recorde d. Imaging holter monitor - Holter Monitor removed as per surya norton Account Number [id number] 2017 018 [facility], [address] [facility], [place], [address], 07/25/2018 08:46:21 XR, shoulde r - Stephon Plascencia when finishe d, No tendern ess to palpati on of left shoulde r. Mild pain at about 90 degrees with anterio r and lateral ABducti on with straigh t arm.) [address] [facility] [address], [place], [address], 04/16/2019 13:50:59 Medication Orders None recorde d. Patient TargetsNo targets recorded. Patient Instructions Encounter Date Encounter Id Patient Instructions Last Modified By Organization Details Last Modified Time 04/15/2019 [id number] After a discussi on of treatment options, which included consideration of best practices and patient preferences, the above treatment plan and objectives were adopted: surgical eval for ? hernia, and PT for shoulder. Increase aerobic exercise. Prostate Cancer Screening using PSA was discussed. The [place]. Preventive Services Task Force advises not to make a PSA test a part of the standard exam for men ages 55-69. Instead they recommend the uncertainties about the test be discussed and ordered only if a patient still wants it. Over their lifetimes as many as 50% or more of men will develop prostate cancer but only 2% of men will of prostate cancer. For men who chose to be screened for prostate cancer if 1000 men are screened with a psa test over a 15 year period there might be 1-2 deaths prevented however 235 men will have a biopsy with risk of infection, bleeding and Pain, 100 men will have their prostate removed by surgery or radiation treatments and 60-70 of those will suffer incontinence or impotence. There is also the risk of anesthesia or radiation complications. For men over 70 prostate cancer screening offered no benefit and risked pain, worry, expense and possibly shorter life expectancy. [email or web address] Not available 04/17/2019 12:02:22 11/04/2019 [id number] Spent 25 minutes of [id number] time, of which greater than 50% was in counseling. After a discussion of treatment options, which included consideration of best practices and patient preferences, the above treatment plan and objectives were adopted. [email or web address] Not available 11/04/2019 18:34:40 Reason for Referral General Surgeon Referral for Inguinal hernia Inguinal hernia, asymptomatic Referring Physician: Catarina Caballero, [facility], Encounter Date: 04/15/2019 Physical Therapist Referral for Pain of left shoulder joint Bilateral left shoulder pain, worse with ROM, Xr of left showed some slight calcification on humerus Referring Physician: Catarina Caballero [facility], Encounter Date: 04/15/2019 Results Created Date Observation Date Name Description Value Unit Range Abnormal Flag Note LastModifiedBy Organization Detail LastModifiedTime 06/07/20 18 06/07/2018 CBC w/ auto diff WBC 8.76 K/uL 3.40-1 1.20 Not Available [facility] [address] [place], [address], 06/07/2018 11:43:31 06/07/20 18 06/07/2018 CBC w/ auto diff RBC 4.36 M/uL 4.50-5 .50 low Not Available [facility] [address] [place], [address], 06/07/2018 11:43:31 06/07/20 18 06/07/2018 CBC w/ auto diff HGB 13.5 g/dL 13.0-1 7.0 Not Available [facility] [address] [place], [address], 06/07/2018 11:43:31 06/07/20 18 06/07/2018 CBC w/ auto diff HCT 39.4 % 40.0-5 1.0 low Not Available [facility] [address] [place], [address], 06/07/2018 11:43:31 06/07/20 18 06/07/2018 CBC w/ auto diff plt 286 K/uL 130-40 0 Not Available [facility] [address] [place], [address], 06/07/2018 11:43:31 06/07/20 18 06/07/2018 CBC w/ auto diff MCV 90.4 fL 79.0-9 8.0 Not Available [facility] [address] [place], [address], 06/07/2018 11:43:31 06/07/20 18 06/07/2018 CBC w/ auto diff MCH 31.0 pg 27.0-3 4.8 Not Available [facility] [address] [place], [address], 06/07/2018 11:43:31 06/07/20 18 06/07/2018 CBC w/ auto diff MCHC 34.3 g/dL 31.5-3 6.0 Not Available [facility] [address] [place], [address], 06/07/2018 11:43:31 06/07/20 18 06/07/2018 CBC w/ auto diff RDW 12.1 % 10.8-1 4.6 Not Available [facility] [address] [place], [address], 06/07/2018 11:43:31 06/07/20 18 06/07/2018 CBC w/ auto diff MPV 9.0 fL 9.4-12 .4 low Not Available [facility] [address] [place], [address], 06/07/2018 11:43:31 06/07/20 18 06/07/2018 CBC w/ auto diff NRBC 0.00 /100_ WBCs Not Available [facility] [address] [place], [address], 06/07/2018 11:43:31 06/07/20 18 06/07/2018 CBC w/ auto diff absolute NRBC 0.00 K/uL Not Available [facility] [address] [place] [address], [address], 06/07/2018 11:43:31 06/07/20 18 06/07/2018 CBC w/ auto diff diff method Auto Not Available [facility] [address] [place], [address], 06/07/2018 11:43:31 06/07/20 18 06/07/2018 CBC w/ auto diff neuts 73.0 % 45.30- 77.70 Not Available [facility] [address] [place], [address], 06/07/2018 11:43:31 06/07/20 18 06/07/2018 CBC w/ auto diff lymphs 15.2 % 12.30- 39.70 Not Available [facility] [address] [place], [address], 06/07/2018 11:43:31 06/07/20 18 06/07/2018 CBC w/ auto diff monos 8.2 % 4.10-1 2.80 Not Available [facility] [address] [place], [address], 06/07/2018 11:43:31 06/07/20 18 06/07/2018 CBC w/ auto diff eos 2.2 % 0-7.2 Not Available [facility]) [address] [place], [address], 06/07/2018 11:43:31 06/07/20 18 06/07/2018 CBC w/ auto diff basos 0.9 % 0-2.80 Not Available [facility] [address] [place], [address], 06/07/2018 11:43:31 06/07/20 18 06/07/2018 CBC w/ auto diff granulocytes , immature (%) 0.5 % 0.0-0. 9 Not Available [facility] [address] [place], [address], 06/07/2018 11:43:31 06/07/20 18 06/07/2018 CBC w/ auto diff absolute neuts 6.40 K/uL 1.40-7 .70 Not Available [facility]) [address] [place], [address], 06/07/2018 11:43:31 06/07/20 18 06/07/2018 CBC w/ auto diff absolute lymphs 1.33 K/uL 0.60-3 .20 Not Available [facility] [address] [place], [address], 06/07/2018 11:43:31 06/07/20 18 06/07/2018 CBC w/ auto diff absolute monos 0.72 K/uL 0.11-0 .59 high Not Available [facility] [address] [place], [address], 06/07/2018 11:43:31 06/07/20 18 06/07/2018 CBC w/ auto diff absolute eos 0.19 K/uL 0.01-0 .50 Not Available [facility] [address] [place], [address], 06/07/2018 11:43:31 06/07/20 18 06/07/2018 CBC w/ auto diff absolute basos 0.08 K/uL 0.00-0 .08 Not Available [facility] [address] [place], [address], 06/07/2018 11:43:31 06/07/20 18 06/07/2018 CBC w/ auto diff granulocytes , immature 0.04 K/uL 0.00-0 .05 Not Available [facility] [address] [place], [address], 06/07/2018 11:43:31 06/07/20 18 06/07/2018 tropo latricia T, serum troponin-T <0.01 NG/mL 0.00-0 .03 Not Available [facility] [address] [place], [address], 06/07/2018 12:01:57 06/07/20 18 06/07/2018 BMP, blood sodium 141 mmol/ L 133-14 6 Not Available [facility] [address] [place], [address], 06/07/2018 12:19:37 06/07/20 18 06/07/2018 BMP, blood chloride 103 mmol/ L 96-108 Not Available [facility] [address] [place], [address], 06/07/2018 12:19:37 06/07/20 18 06/07/2018 BMP, blood potassium 5.0 mmol/ L 3.3-5. 1 Not Available [facility] [address] [place], [address], 06/07/2018 12:19:37 06/07/20 18 06/07/2018 BMP, blood CO2 25 mmol/ L 21-35 Not Available [facility] [address] [place] [address], [address], 06/07/2018 12:19:37 06/07/20 18 06/07/2018 BMP, blood BUN 12 mg/dL 6-19 Not Available [facility]) [address] [place] [address], [address], 06/07/2018 12:19:37 06/07/20 18 06/07/2018 BMP, blood creatinine 0.80 mg/dL 0.5-1. 5 Not Available [facility]) [address] [place] [address], [address], 06/07/2018 12:19:37 06/07/20 18 06/07/2018 BMP, blood glucose 98 mg/dL 70-99 Not Available [facility]) [address] [place] [address], [address], 06/07/2018 12:19:37 06/07/20 18 06/07/2018 BMP, blood calcium 9.5 mg/dL 8.4-10 .3 Not Available [facility]) [address] [place] [address], [address], 06/07/2018 12:19:37 06/07/20 18 06/07/2018 BMP, blood eGFR 100 mL/mi n/1.7 3m2 >59 If patie nt is black , multi ply resul t by 1.159 . Estim ated glome rular filtr ation rate calcu lated using the CKD-E PI equat ion. Not Available [facility] [address] [place] [address], [address], 06/07/2018 12:19:37 06/07/20 18 06/07/2018 BMP, blood anion gap 18 mmol/ L 10-20 Not Available [facility]) [address] [place] [address] [place], [address], 06/07/2018 12:19:37 06/07/20 18 06/07/2018 lfts (hepa tic panel ) alkaline phosphatase 57 U/L 39-117 Not Available [facility] [address] [place], [address], 06/07/2018 12:19:40 06/07/20 18 06/07/2018 lfts (hepa tic panel ) total bilirubin 0.4 mg/dL 0.0-1. 2 Not Available [facility] ([facility]) [address] [place], [address], 06/07/2018 12:19:40 06/07/20 18 06/07/2018 lfts (hepa tic panel ) direct bilirubin <0.2 mg/dL 0-0.3 Not Available [facility] ([facility]) [address] [place] [address], [address], 06/07/2018 12:19:40 06/07/20 18 06/07/2018 lfts (hepa tic panel ) bilirubin (indirect) NOT CALCUL ATED mg/dL 0-1.5 Not Available [facility] ([facility]) [address] [place], [address], 06/07/2018 12:19:40 06/07/20 18 06/07/2018 lfts (hepa tic panel ) AST 15 U/L 0-37 Not Available [facility] ([facility]) [address] [place], [address], 06/07/2018 12:19:40 06/07/20 18 06/07/2018 lfts (hepa tic panel ) ALT 11 U/L 0-40 Not Available [facility] ([facility]) [address] [place], [address], 06/07/2018 12:19:40 06/07/20 18 06/07/2018 lfts (hepa tic panel ) total protein 6.6 g/dL 6.5-8. 0 Not Available [facility] ([facility]) [address] [place], [address], 06/07/2018 12:19:40 06/07/20 18 06/07/2018 lfts (hepa tic panel ) albumin 4.1 g/dL 3.9-4. 8 Not Available [facility]) [address] [place] [address], [address], 06/07/2018 12:19:40 06/07/20 18 06/07/2018 lfts (hepa tic panel ) globulin 2.5 g/dL 1-4.8 Not Available [facility] ([facility]) [address] [place], [address], 06/07/2018 12:19:40 06/07/20 18 06/07/2018 lfts (hepa tic panel ) A/G ratio 1.64 ratio 1.00-4 .80 Not Available [facility] ([facility]) [address] [place], [address], 06/07/2018 12:19:40 06/07/20 18 06/07/2018 TSH, serum or plasm a TSH 1.50 uIU/m L 0.27-4 .20 Not Available [facility] ([facility]) [address] [place] [address], [address], 06/07/2018 12:35:08 10/01/19 19 10/01/2018 CBC WBC 6.0 K/??L 4.2-9. 1 Not Available [facility] [address] [place], [address], 10/01/2018 10:38:57 10/01/19 19 10/01/2018 CBC RBC 4.49 M/??L 4.63-6 .08 low Not Available [address], [address], 10/01/2018 10:38:57 0210/01/2018 CBC HGB 14.0 g/dL 13.7-1 7.5 Not Available [address], [address], 10/01/2018 10:38:57 10/01/1910/01/2018 CBC HCT 41.0 % 40.1-5 1.0 Not Available [address], [address], 10/01/2018 10:38:57 10/01/1910/01/2018 CBC MCV 91.3 fL 79.0-9 2.2 Not Available [address], [address], 10/01/2018 10:38:57 10/01/1910/01/2018 CBC MCH 31.2 pg 25.7-3 2.2 Not Available [address], [address], 10/01/2018 10:38:57 10/01/1910/01/2018 CBC MCHC 34.1 g/dL 32.3-3 6.5 Not Available [address], [address], 10/01/2018 10:38:57 10/01/1910/01/2018 CBC plt 382.0 K/??L 163.0- 337.0 high Not Available [address], [address], 10/01/2018 10:38:57 10/01/1910/01/2018 CBC MPV 9.3 fL 9.4-12 .4 low Not Available [address], [address], 10/01/2018 10:38:57 10/01/1910/01/2018 CBC neut% 48.6 % 34.0-6 7.9 Not Available [address], [address], 10/01/2018 10:38:57 10/01/1910/01/2018 CBC neut# 2.9 1.8-5. 4 Not Available [address], [address], 10/01/2018 10:38:57 10/01/1910/01/2018 CBC lymph % 39.7 % 21.8-5 3.1 Not Available [address], [address], 10/01/2018 10:38:57 10/01/1910/01/2018 CBC lymph # 2.4 K/??L 1.3-3. 6 Not Available [address], [address], 10/01/2018 10:38:57 10/01/1910/01/2018 CBC mono% 8.4 % 5.3-12 .2 Not Available [address], [address], 10/01/2018 10:38:57 10/01/1910/01/2018 CBC mono# 0.5 0.3-0. 8 Not Available [address], [address], 10/01/2018 10:38:57 10/01/1910/01/2018 CBC eo% 2.3 % 0.8-7. 0 Not Available [address], [address], 10/01/2018 10:38:57 10/01/1910/01/2018 CBC eo# 0.1 0.0-0. 5 Not Available [address], [address], 10/01/2018 10:38:57 10/01/1910/01/2018 CBC baso% 1.0 % 0.2-1. 2 Not Available [address], [address], 10/01/2018 10:38:57 10/01/19 19 10/01/2018 CBC baso# 0.1 0.0-0. 1 high Not Available [address], [address], 10/01/2018 10:38:57 10/01/19 19 10/01/2018 CBC RDW-CV 12.6 % 11.6-1 4.4 Not Available [address], [address], 10/01/2018 10:38:57 10/01/19 19 10/01/2018 eryth rocyt e sedim entat ion rate by jasmina erickson sed rate 1.0 0.0-20 .0 Not Available [address], [address], 10/01/2018 12:01:03 10/01/19 19 10/01/2018 CMP, serum or plasm a glucose 89 mg/dL 70-100 Not Available [address], [address], 10/01/2018 16:11:40 10/01/19 19 10/01/2018 CMP, serum or plasm a BUN 19 mg/dL 7-18 high Not Available [address], [address], 10/01/2018 16:11:40 10/01/19 19 10/01/2018 CMP, serum or plasm a creatinine 1.1 mg/dL 0.8-1. 3 Not Available [address], [address], 10/01/2018 16:11:40 10/01/19 19 10/01/2018 CMP, serum or plasm a B/C 17.3 ratio Not Available [address], [address], 10/01/2018 16:11:40 10/01/19 19 10/01/2018 CMP, serum or plasm a GFR -non 73.6 mL/mi n Apple corey d GFR by the Natio nal Kidne y Found ation >60 mL/mi n/1.7 3m2 - Brooklynn l <60 mL/mi n/1.7 3m2 - Chron ic Kidne y Disea se <15 mL/mi n/1.7 3m2 - Kidne y Failu re Not Available [address], [address], 10/01/2018 16:11:40 10/01/19 19 10/01/2018 CMP, serum or plasm a GFR - if 89.1 mL/mi n For Afric an Ameri can patie nts: Resul ts Multi plied by 1.21 Not Available [address], [address], 10/01/2018 16:11:40 10/01/1910/01/2018 CMP, serum or plasm a sodium 143 mmol/ L 136-14 5 Not Available [address], [address], 10/01/2018 16:11:40 10/01/1910/01/2018 CMP, serum or plasm a potassium 4.9 mmol/ L 3.5-5. 1 Not Available [address], [address], 10/01/2018 16:11:40 10/01/1910/01/2018 CMP, serum or plasm a chloride 104 mmol/ L 96-107 Not Available [address], [address], 10/01/2018 16:11:40 10/01/1910/01/2018 CMP, serum or plasm a anion gap 12.8 5.0-15 .0 Not Available [address], [address], 10/01/2018 16:11:40 10/01/1910/01/2018 CMP, serum or plasm a CO2 26 mmol/ L 21-32 Not Available [address], [address], 10/01/2018 16:11:40 10/01/19 19 10/01/2018 CMP, serum or plasm a calcium 9.7 mg/dL 8.5-10 .3 Not Available [address], [address], 10/01/2018 16:11:40 10/01/19 19 10/01/2018 CMP, serum or plasm a total protein 7.0 g/dL 6.4-8. 2 Not Available [address], [address], 10/01/2018 16:11:40 10/01/1910/01/2018 CMP, serum or plasm a albumin 4.2 g/dL 3.4-5. 0 Not Available [address], [address], 10/01/2018 16:11:40 10/01/1910/01/2018 CMP, serum or plasm a globulin 2.8 g/dL Not Available [address], [address], 10/01/2018 16:11:40 10/01/1910/01/2018 CMP, serum or plasm a A/G 1.5 ratio 0.8-2. 0 Not Available [address], [address], 10/01/2018 16:11:40 10/01/1910/01/2018 CMP, serum or plasm a total bilirubin 0.50 mg/dL 0.00-1 .00 Not Available [address], [address], 10/01/2018 16:11:40 10/01/1910/01/2018 CMP, serum or plasm a AST 14 U/L 15-37 low Not Available [address], [address], 10/01/2018 16:11:40 10/01/19 19 10/01/2018 CMP, serum or plasm a ALT 18 U/L 30-65 low Not Available [address], [address], 10/01/2018 16:11:40 10/01/19 19 10/01/2018 CMP, serum or plasm a alk. phos. 67 U/L 50-136 Not Available [address], [address], 10/01/2018 16:11:40 10/01/19 19 10/01/2018 TSH, serum or plasm a TSH 0.72 uIU/m L 0.50-6 .00 The Ameri can Colle ge of Endoc rinol ogy and Ameri can Thyro id Assoc iatio n recom mend goal TSH value s betwe en 0.4-4 .0 mIU/m L. Not Available [address], [address], 10/01/2018 16:53:36 10/01/1910/01/2018 C-mary ctive prote in, quant itati ve, serum or plasm a C-reactive protein -quant <2.0 mg/L 0.0-9. 0 < Not Available [address], [address], 10/01/2018 16:58:41 11/05/19 20 11/05/2019 CBC WBC 5.25 K/??L 4.23-9 .07 Not Available [address], [address], 11/05/2019 10:42:31 11/05/1911/05/2019 CBC RBC 4.58 M/??L 4.63-6 .08 low Not Available [address], [address], 11/05/2019 10:42:31 11/05/1911/05/2019 CBC HGB 14.2 g/dL 13.7-1 7.5 Not Available [address], [address], 11/05/2019 10:42:31 11/05/1911/05/2019 CBC HCT 42.2 % 40.1-5 1.0 Not Available [address], [address], 11/05/2019 10:42:31 11/05/1911/05/2019 CBC MCV 92.1 fL 79.0-9 2.2 Not Available [address], [address], 11/05/2019 10:42:31 11/05/1911/05/2019 CBC MCH 31.0 pg 25.7-3 2.2 Not Available [address], [address], 11/05/2019 10:42:31 11/05/1911/05/2019 CBC MCHC 33.6 g/dL 32.3-3 6.5 Not Available [address], [address], 11/05/2019 10:42:31 11/05/1911/05/2019 CBC plt 349 K/??L 163-33 7 high Not Available [address], [address], 11/05/2019 10:42:31 11/05/1911/05/2019 CBC MPV 9.4 fL 9.4-12 .4 Not Available [address], [address], 11/05/2019 10:42:31 11/05/1911/05/2019 CBC neut% 35.8 % 34.0-6 7.9 Not Available [address], [address], 11/05/2019 10:42:31 11/05/1911/05/2019 CBC neut# 1.88 1.78-5 .38 Not Available [address], [address], 11/05/2019 10:42:31 11/05/19 20 11/05/2019 CBC lymph % 48.6 % 21.8-5 3.1 Not Available [address], [address], 11/05/2019 10:42:31 11/05/1911/05/2019 CBC lymph # 2.55 K/??L 1.32-3 .57 Not Available [address], [address], 11/05/2019 10:42:31 11/05/1911/05/2019 CBC mono% 9.5 % 5.3-12 .2 Not Available [address], [address], 11/05/2019 10:42:31 11/05/1911/05/2019 CBC mono# 0.50 0.30-0 .82 Not Available [address], [address], 11/05/2019 10:42:31 11/05/1911/05/2019 CBC eo% 4.4 % 0.8-7. 0 Not Available [address], [address], 11/05/2019 10:42:31 11/05/1911/05/2019 CBC eo# 0.23 0.04-0 .54 Not Available [address], [address], 11/05/2019 10:42:31 11/05/1911/05/2019 CBC baso% 1.7 % 0.2-1. 2 high Not Available [address], [address], 11/05/2019 10:42:31 11/05/19 20 11/05/2019 CBC baso# 0.09 0.00-0 .08 high Not Available [address], [address], 11/05/2019 10:42:31 11/05/1911/05/2019 CBC RDW-CV 12.3 % 11.6-1 4.4 Not Available [address], [address], 11/05/2019 10:42:31 11/05/1911/05/2019 CBC Ig% 0.000 % 0.000- 1.500 Ig % >0.5 Indic ates possi ble Left Shift Not Available [address], [address], 11/05/2019 10:42:31 11/05/1911/05/2019 CBC Ig# 0.000 0.000- 0.093 Not Available [address], [address], 11/05/2019 10:42:31 11/05/1911/05/2019 CBC NRBC% 0.0 % 0.0-0. 2 Not Available [address], [address], 11/05/2019 10:42:31 11/05/1911/05/2019 CBC NRBC# 0.000 0.000- 0.012 Not Available [address], [address], 11/05/2019 10:42:31 11/05/1911/05/2019 HbA1c (hemo globi n A1c), blood hemoglobin A1C 5.9 % 4.8-6. 0 Goal: <7% in Patie nts with Diabe dale Not Available [address], [address], 11/05/2019 11:08:33 11/05/1911/05/2019 HbA1c (hemo globi n A1c), blood estimated average glucose 122.6 mg/dL Not Available [address], [address], 11/05/2019 11:08:33 11/05/1911/05/2019 PSA, serum or plasm a PSA 1.49 NG/mL 0.00-4 .00 Not Available [address], [address], 11/05/2019 11:16:46 11/05/1911/05/2019 TSH, serum or plasm a TSH 1.66 uIU/m L 0.50-6 .00 The Ameri can Colle ge of Endoc rinol ogy and Ameri can Thyro id Assoc iatio n recom mend goal TSH value s betwe en 0.4-4 .0 mIU/m L. Not Available [address], [address], 11/05/2019 11:42:34 11/05/1911/05/2019 CMP, serum or plasm a glucose 97 mg/dL 70-100 Not Available [address], [address], 11/05/2019 12:51:38 11/05/19 20 11/05/2019 CMP, serum or plasm a BUN 16 mg/dL 7-18 Not Available [address], [address], 11/05/2019 12:51:38 11/05/1911/05/2019 CMP, serum or plasm a creatinine 1.1 mg/dL 0.8-1. 3 Not Available [address], [address], 11/05/2019 12:51:38 11/05/19 20 11/05/2019 CMP, serum or plasm a B/C 14.5 ratio Not Available [address], [address], 11/05/2019 12:51:38 11/05/1911/05/2019 CMP, serum or plasm a GFR -non 73.3 mL/mi n Recom leora d GFR by the Natio nal Kidne y Found ation >60 mL/mi n/1.7 3m2 - Brooklynn l <60 mL/mi n/1.7 3m2 - Chron ic Kidne y Disea se <15 mL/mi n/1.7 3m2 - Kidne y Failu re Not Available [address], [address], 11/05/2019 12:51:38 11/05/19 20 11/05/2019 CMP, serum or plasm a GFR - if 88.7 mL/mi n For Afric an Ameri can patie nts: Resul ts Multi plied by 1.21 Not Available [address], [address], 11/05/2019 12:51:38 11/05/19 20 11/05/2019 CMP, serum or plasm a sodium 143 mmol/ L 136-14 5 Not Available [address], [address], 11/05/2019 12:51:38 11/05/19 20 11/05/2019 CMP, serum or plasm a potassium 5.4 mmol/ L 3.5-5. 1 high Not Available [address], [address], 11/05/2019 12:51:38 11/05/1911/05/2019 CMP, serum or plasm a chloride 105 mmol/ L 96-107 Not Available [address], [address], 11/05/2019 12:51:38 11/05/19 20 11/05/2019 CMP, serum or plasm a anion gap 7.8 5.0-15 .0 Not Available [address], [address], 11/05/2019 12:51:38 11/05/1911/05/2019 CMP, serum or plasm a CO2 30 mmol/ L 21-32 Not Available [address], [address], 11/05/2019 12:51:38 11/05/19 20 11/05/2019 CMP, serum or plasm a calcium 9.8 mg/dL 8.5-10 .3 Not Available [address], [address], 11/05/2019 12:51:38 11/05/19 20 11/05/2019 CMP, serum or plasm a total protein 7.0 g/dL 6.4-8. 2 Not Available [address], [address], 11/05/2019 12:51:38 11/05/19 20 11/05/2019 CMP, serum or plasm a albumin 4.2 g/dL 3.4-5. 0 Not Available [address], [address], 11/05/2019 12:51:38 11/05/19 20 11/05/2019 CMP, serum or plasm a globulin 2.8 g/dL Not Available [address], [address], 11/05/2019 12:51:38 11/05/19 20 11/05/2019 CMP, serum or plasm a A/G 1.5 ratio 0.8-2. 0 Not Available [address], [address], 11/05/2019 12:51:38 11/05/19 20 11/05/2019 CMP, serum or plasm a total bilirubin 0.70 mg/dL 0.00-1 .00 Not Available [address], [address], 11/05/2019 12:51:38 11/05/19 20 11/05/2019 CMP, serum or plasm a AST 13 U/L 0-37 Not Available [address], [address], 11/05/2019 12:51:38 11/05/19 20 11/05/2019 CMP, serum or plasm a ALT 19 U/L 6-63 Not Available [address], [address], 11/05/2019 12:51:38 11/05/19 20 11/05/2019 CMP, serum or plasm a alk. phos. 56 U/L 50-136 Not Available [address], [address], 11/05/2019 12:51:38 11/05/19 20 11/05/2019 lipid panel , serum cholesterol 216 mg/dL <200 mg/dl Flor able 200-2 39 mg/dl Borde rline High >240 mg/dl High Not Available [address], [address], 11/05/2019 12:51:39 11/05/19 20 11/05/2019 lipid panel , serum triglyceride s 91 mg/dL <150 mg/dL Brooklynn l 150-1 99 mg/dL Borde rline High 200-4 99 mg/dL High >500 mg/dL Very High Not Available [address], [address], 11/05/2019 12:51:39 11/05/1911/05/2019 lipid panel , serum direct HDL 58 mg/dL <40 mg/dl - Major Risk for CHD >60 mg/dl - Negat justus Risk for CHD Not Available [address], [address], 11/05/2019 12:51:39 11/05/1911/05/2019 LDL, direc t, serum direct LDL 139 mg/dL RISK CATEG ORY LDL GOAL _ CHD or CHD Risk Equiv alent s <100 mg/dl (10-y ear risk >20%) 2+ Risk Facto rs <130 mg/dl (10-y ear risk <= 20%) 0-1 Risk Facto r??? <160 mg/dl ??? Almos t all peopl e with 0-1 risk facto r have a 10 year risk <10%, thus 10 year risk asses ment in peopl e with 0-1 risk facto r is not liana sarmiento. 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, respi rator y speci men covid-19 source NASOPH ARYNGE AL SWAB (RIGGER UP) Not Available [facility] (Outpatient) [address] [place] [address], [address], 04/20/2020 15:20:41 04/20/20 20 04/20/2020 SARS CoV 2 RNA (COVI D-19) , QL, 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, respi rator y speci men covid-19 comment Not Available [facility] (Outpatient) [address] [place], [address], 04/20/2020 15:20:41 04/20/20 20 04/20/2020 SARS CoV 2 RNA (COVI D-19) , QL, 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, respi rator y speci men covid testing status Sent to [facility] Not Available [facility] (Outpatient) [address] [place], [address], 04/20/2020 15:20:41 04/20/20 20 04/21/2020 SARS CoV 2 RNA (COVI D-19) , QL, 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, respi rator y speci men specimen source/descr iption NASOPH ARYNGE AL SWAB Not Available [facility] (Outpatient) [address] [place], [address], 04/21/2020 15:06:29 04/20/20 20 04/21/2020 SARS CoV 2 RNA (COVI D-19) , QL, 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 Negat justus resul ts must be combi amor with clini keisha obser vatio ns, patie nt histo ry, and epide miolo gical infor matio n. Optim um speci men types and timin g for peak viral level s durin g infec tion by SARS- CoV-2 have not been deter mined . Colle ction of multi ple speci mens from the same patie nt may be neces guillermina to detec t the virus . This test has been autho rized by the FDA under an Emerg ency Use Autho rizat ion (EUA) for use by autho rized labor atori es. Not Available [facility] (Outpatient) [address] [place], [address], 04/21/2020 15:06:29 06/07/20 18 06/07/2018 CT, head, w/o contr ast COMPAR KONG: 2015. TECHNI QUE: Nonenh anced head CT from skull base to vertex with multi- planar reform ats. Manual dose reduct ion techni que tailor ed for patien t and site of imagin g CT HEAD FINDIN GS: There is no acute intrac ranial hemorr jozef, infarc t, or intrac ranial mass. No mass effect , midlin e shift or extra- axial fluid collec tions. Pittman-w mary lou matter differ entiat ion is preser yuli. No hydroc ephalu s. Basal cister ns are patent . Stable bilate ral cavern ous caroti d artery calcif ied plaque . Pituit martin gland is not enlarg ed. Mastoi ds and middle ears are clear. No acute orbita l findin gs. No acute soft tissue or bony abnorm ality. IMPRES JENIFFER: No acute intrac ranial findin gs. No findin gs to accoun t for the patien t's sympto ms. TOTAL CTDIvo l: 52.7 mGy POS - CDHRAD BOARDW S11 Electr onical ly Signed by: MARTÍN GANDHI MD on 2017 12:02 PM Interp reted by: Mratín gandhi MD Signed by: Martín gandhi MD Final result CATARINA Clark [facility] [address] [facility] [place], [address], 06/07/2018 14:05:44 06/12/20 18 evert r monit or No observ ation record ed. [facility] Not Available 2018 14:59:11 09/04/19 19 08/30/2018 CT, chest No observ ation record ed. [facility] Not Available 2018 12:58:25 04/16/20 19 04/15/2019 XR, shoul lis OBSERV ATION: Left should er 3 views Pain. Compar kong 2012. The joint spaces , minera lizati on, and alignm ent are well-m aintai amor. The visual ized thorax is normal . A small flake of bone is seen in the soft tissue s adjace nt to the greate r tuberc le. Impres jeniffer: Minima l eviden ce of calcif ic tendin itis Electr onical ly signed Bonnie Carrasco elissa: [facility] (Imaging) [address], [place], [address], 04/16/2019 18:33:41 Result Notes None recorded. Problems Name Problem SNOMED Code Status Onset Date Resolution Date Notes Provider Name and Address Organization Details Recorded Time Viri 487856254 Active 2016 Catarina Caballero MD [address] [place], [place] [address]Ever[place], [address], [facility] 7 15:30:47 Adrenal mass 240403550 Active 2017 Edgar Palma MD [address] [place], [place] [address], [address], [facility] 8 08:06:01 Unintenti onal weight loss 304954123 Active [address], LDN [address] [place] [address] [place], [address], [facility] 8 09:15:36 Mixed hyperlipi demia 529566305 Completed 200604/26/2015 Catarina Caballero MD [address] [place], [place] [address], [address], [facility] 6 08:29:34 Headache 04754637 Completed 200105/06/2010 Catarina Caballero MD [facility] [place], [address], [facility] 6 08:29:34 Contusion 362701652 Completed 200605/06/2010 Catarina Caballero MD [address] [place], [place] [address], [address], [facility] 6 08:29:34 Rotator cuff shoulder syndrome and allied disorders Completed 07/17/2013 Catarina Caballero MD [address] [place] [address] [place], [address], [facility] 6 08:29:34 Hyperthyr oidism 96818646 Active 2005 Treated Grave's disease Catarina Caballero MD [address] [place], [place] [address], [address], [facility] 6 08:29:34 Presbyopi a 84152616 Completed 200605/06/2010 Catarina Caballero MD [address] [place], [address], [facility] 6 08:29:34 Strain of muscle and/or tendon of elbow region 010777622 Completed 200705/06/2010 Catarina Caballero MD [address] [place], [address], [facility] 6 08:29:34 Lateral epicondyl itis 970780381 Completed 200405/06/2010 Catarina Caballero MD [address] [place] [address] [place], [address], [facility] 6 08:29:34 Foreign body on external eye 15267027 Completed 200305/06/2010 Catarina Caballero MD [address] [place], [place] [address], [address], [facility] 6 08:29:34 Increased frequency of urination 624082758 Completed 200605/06/2010 Catarina Caballero MD [address] [place] [address] [place], [address], [facility] 6 08:29:34 Epistaxis Completed 200605/06/2010 Catarina Caballero MD [address] [place], [address], [facility] 6 08:29:34 Allergic rhinitis 62048272 Completed 200211/08/2011 Catarina Caballero MD [address] [place] [address] [place], [address], [facility] 6 08:29:34 Acute pharyngit is 961557109 Completed 05/06/2010 Catarina Caballero MD [facility] [place], [address], [facility] 6 08:29:34 Neck pain 31526249 Completed 200311/08/2011 Catarina Caballero MD [address] [place], [place] [address], [address], [facility] 6 08:29:34 Dizziness 232226502 Completed 200305/06/2010 Catarina Caballero MD [address] [place] [address] [place], [address], [facility] 6 08:29:34 Sprain of ankle 40090092 Completed 200605/06/2010 Catarina Caballero MD [address] [place], [place] [address], [address], [facility] 6 08:29:34 Epidermoi d cyst of skin 960229771 Completed 200005/06/2010 Catarina Caballero MD [address] [place], [place] [address], [address], [facility] 6 08:29:34 Loose body in elbow joint 094828191 Completed 200705/06/2010 Catarina Caballero MD [address] [place], [place] [address], [address], [facility] 6 08:29:34 Pain in elbow 81323492 Completed 200405/06/2010 Catarina Caballero MD [address] [place], [place] [address], [address], [facility] 6 08:29:34 Acariasis 559953340 Completed 200005/06/2010 Catarina Caballero MD [facility] [place], [address], [facility] 6 08:29:34 Knee pain Completed 200305/06/2010 Catarina Caballero MD [address] [place], [place] [address] [address], [facility] 6 08:29:34 Hand joint pain 485603391 Completed 200305/06/2010 Catarina Caballero MD [address] [place], [place] [address] [address], [facility] 6 08:29:34 Abnormal weight loss 111233984 Completed 200505/06/2010 MD [place], [address], [facility] 6 08:29:34 On examinati on - a rash Completed 200705/06/2010 [place], [address], [facility] 6 08:29:34 Dry eyes 991205734 Completed 200605/06/2010 [place], [address], [facility] 6 08:29:34 Acute maxillary sinusitis 04762307 Completed 200505/06/2010 MD [place], [address], [facility] 6 08:29:34 Low back pain 637585302 Completed 200011/08/2011 [place], [address], [facility] 6 08:29:34 Blepharit is 20658530 Completed 200605/06/2010 [place], [address], [facility] 6 08:29:34 Hypothyro idism 57732182 Completed 200611/20/2014 MD [place], [address], [facility] 6 08:29:34 Pain in limb 74597763 Completed 200505/06/2010 [place], [address], [facility] 6 08:29:34 Disorder of upper respirato ry system 035777631 Completed 200205/06/2010 [place], [address], [facility] 6 08:29:34 Malaise and fatigue 526715247 Completed 200505/06/2010 Catarina Caballero MD [address] [place] [address] [place], [address], [facility] 6 08:29:34 Problem Notes None recorded. Procedures Surgical History Date Name Laterality Status Provider Name and Address Organization Details Recorded Time 04/22/20 19 [address]: PT Eval Low Complexity completed Phuc Bass, PT [address] [place], [address], [facility] 04/22/2019 13:37:56 04/22/20 19 Treatment and Advice completed Phuc Bass, PT [address] [place] [address], [address], [facility] 04/22/2019 14:17:13 12/27/19 18 Heel Injection completed Marianela Stuart DPM [address] [place] [address], [address], [facility] 12/26/2017 13:56:12 08/31/19 18 Trochanteric Bursa Injection completed Kristian Garcia MD [address] [place] [address], [address], [facility] 08/31/2017 11:09:17 08/14/20 17 Greater Trochanteric Bursa Steroid Injection completed Catarina Caballero MD [address] [place] [address], [address], [facility] 08/15/2017 12:24:38 04/04/20 16 Ganglion Injection completed Catarina Caballero MD [address] [place] [address], [address], [facility] 04/04/2016 09:14:49 05/04/20 12 Corticosteroid Injection completed Catarina Caballero MD [address] [place] [address], [address], [facility] 05/05/2012 16:59:01 04/24/20 12 Treatment and Advice completed Radha Lozada, PT [address] [place], [address], [facility] 04/24/2012 12:31:17 repair of umbilical hernia completed Maria Del Carmen Leal [facility] 04/15/2019 14:57:22 Imaging Results Imaging Date Name Status LastModified by Organiz ation Details LastModified Time 06/07/2018 CT, head, w/o contrast completed [facility] [address] [facility], [place], [address], 06/07/2018 14:05:44 06/12/2018 holter monitor completed [facility] Information not available 09/21/2018 14:59:11 08/30/2018 CT, chest completed [facility] Information no t available 09/04/2018 12:58:25 04/15/2019 XR, shoulder completed [facility] (Imaging) [address], [place], [address], 04/16/2019 18:33:41 Procedure Notes None recorded. Medical Equipment None Reported. Allergies No known drug allergies Medications Name Sig Start Date Stop Date Status Note LastModified by Organization Details LastModified Time prednison e 10 mg tablet 6 tablets daily for 3 days, 5 for one, 4 for 0ne, 3 for one, 2 for one, 1 for one 09/29 completed Not Available Not Available Not Available doxycycli ne hyclate 100 mg capsule 09/15 completed Not Available Not Available Not Available Levoxyl 125 mcg tablet 2007 active Take 1.00 tabs daily; brand name only Not Available Not Available Not Available azithromy juan 250 mg tablet Take 2 tablets (500 mg) by oral route once daily for 1 day then 1 tablet (250 mg) by oral route once daily for 4 days 2010 active Not Available Not Available Not Avai lable hydrocodo ne 5 mg-acetam inophen 325 mg tablet active Not Available Not Available Not Available Vitamin C 500 mg chewable tablet 09/08 completed 2 tab qd Not Available Not Available Not Available levothyro xine 100 mcg tablet Take 1 tablet every day by oral route. 2012 active reduced dose Not Available Not Available Not Available prednisol one acetate 1 % eye drops,ghanshyam pension 09/29 completed Not Available Not Available Not Available dexametha sone 1 mg tablet 1mg by mouth between 11pm and midnight the night prior to cortisol and dexameth asone 8am blood tests 10/01 completed Not Available Not Available Not Available simvastat in 20 mg tablet TAKE 1 TABLET BY MOUTH EVERY DAY active Not Available Not Available No t Available Synthroid 88 mcg tablet TAKE 1 TABLET DAILY 09/08 completed Not Available Not Available Not Available Levoxyl 112 mcg tablet Take 1 tablet every day by oral route for 90 days. 2010 active Not Available Not Available Not Avai lable fluticaso ne propionat e 50 mcg/actua tion nasal spray,ghanshyam pension Inhale 1 spray twice a day by intranas al route. active Not Available Not Available No t Available doxycycli ne hyclate 100 mg tablet active Not Available Not Available Not Available multivita min take one tab daily 06/08 completed Not Available Not Available Not Available GaviLyte- G 236 gram-22.7 4 gram-6.74 gram-5.86 gram oral solution 11/22 completed Not Available Not Available Not Available Afluria 3036-4504 (PF) 45 mcg (15 mcg x 3)/0.5 mL intramusc ular syringe TO BE ADMINIST ERED BY PHARMACI ST active Not Available Not Available No t Available Afluria 0301-3046 (PF) 45 mcg(15 mcg x 3)/0.5 mL intramusc ular syringe inject 0.5 millilit er intramus cularly 09/15 completed Not Available Not Available Not Available Flucelvax Quad (PF) 60 mcg (15 mcg x 4)/0.5 mL IM syringe 09/08 completed Not Available Not Available Not Available Vitals Date Recorded Body height Body mass index (BMI) Body weight Body temperature Systolic blood pressure Diastolic blood pressure Provider Name and Address Organization Details Last Updated DateTime 9 181.61 cm 24.6 kg/m2 06554.0 3 g 97.5 [degF] 116 mm[Hg] 68 mm[Hg] Marilee Veliz MA [facility] 9 09:20:08 Date Recorded Body height Body mass index (BMI) Body weight Heart rate Systolic blood pressure Diastolic blood pressure Provider Name and Address Organization Details Last Updated DateTime 9 181.61 cm 24.1 kg/m2 04059.7 6 g 64 /min 118 mm[Hg] 76 mm[Hg] Maria Del Carmen Leal [facility] 9 15:04:06 Date Recorded Body height Body mass index (BMI) Body weight Heart rate Systolic blood pressure Diastolic blood pressure Provider Name and Address Organization Details Last Updated DateTime 0 181.61 cm 24.5 kg/m2 72330.4 4 g 66 /min 118 mm[Hg] 76 mm[Hg] Kelsey Qureshi [facility] 0 08:40:06 Date Recorded Body weight Provider Name an d Address Organization Details Last Updated DateTime 11/04/2019 455[address].66 g Cliff Gibson MD [address] [place] [address], [address], [facility] 11/04/2019 08:46:37 Social History Question Answer Notes LastModified by Organizat ion Details LastModified Time Tobacco Smoking Status Former Smoker quit 1999 Not Available [facility] 01/20/2011 02:08:54 Do You Have An Advance Directive? Yes Given Form Information not available 03/24/2009 What Is Your Level Of Alcohol Consumption? Moderate A Couple Beers Weekly Information not available 03/14/2013 Do You Wear A Helmet When Biking? No N/a Information not available 04/15/2019 What Is Your Level Of Caffeine Consumption? Moderate 2 Cups In AM [email or web address] Information not available 04/15/2019 How Much Tobacco Do You Chew? None Information not available 11/10/2011 What Type Of Diet Are You Following? REGULAR Information not available 11/10/2011 Which Illicit Or Recreational Drugs Have You Used? None [email or web address] Information not available 09/29/2017 Do You Or Have You Ever Used E-cigarettes Or Vape? Never Used Electronic Cigarettes Information not available 11/04/2019 What Is Your Occupation? Retired 2017 [employer] [email or web address] Information not available 08/31/2017 When Did You Quit Smoking? 11-15yearssin [email or web address] te Information not available 04/24/2015 How Many Days In The Past Year Have You Had A Heavy Drinking Consumption (4+ Female, 5+ Male)? 3 [email or web address] Information not available 09/29/2017 Are There Any Guns Present In Your Home? No Information not available 11/10/2011 Live Alone Or With Others? With Others Information not available 11/10/2011 CSRP - Narcotics No Information not available 11/10/2011 CSRP Contract Signed And Discussed No Information not available 11/10/2011 Patient Has Health Care Proxy Signed And In Chart No [email or web address] Information not available 08/10/2018 CSRP - Stimulants No Information not available 07/18/2013 CSRP - Suboxone No Informati on not available 12/07/2015 Marital Status Information not available 07/14/2011 Mosquito Repellent Used Routinely Yes Sometimes Information not available 11/20/2014 What Was The Date Of Your Most Recent Tobacco Screening? 11/04/2019 Information not available 11/04/2019 How Many Children Do You Have? 0 Information not available 11/10/2011 What Is Your Current Pack Years? 10packyears Information not available 04/24/2015 Seat Belts Used Routinely Yes Information not available 11/10/2011 Smoke Alarm In Home Yes Information not available 11/10/2011 How Much Tobacco Do You Smoke? No Information not available 04/24/2015 General Stress Level Low [email or web address] Information not available 04/15/2019 Do You Use Sunscreen Routinely? No Prefers Not To Use, Prevents Long Exposure Information not available 11/10/2011 Sex: Unknown Functional Status None recorded. Mental Status None recorded. Family History Relationship Description Onset Age of this Age Resolved Age Notes LastModified by Organization Details LastModified Time Mother Glaucoma [email or web address] Not available 07/19/2013 12:24:52 Mother Malignant tumor of lung [email or web address] Not available 2017 07:41:03 Notes:Father of alcohol complications. Mother glaucoma Medical History Condition Response Hypothyroid Y rosacea Y EYE Y Hyperlipidemia Y GERD Y Immunizations Vaccine Type Date Status Note Provider Nam e and Address Organization Details Recorded Time Td(adult) unspecified formulation 1 completed Not Available [facility] 04/22/2020 15:49:16 Tdap 2 completed Not Available [facility] 09/14/2019 02:36:33 influenza, unspecified formulation 7 completed Not Available [facility] 04/22/2020 15:49:16 Influenza, split virus, trivalent, PF 2 completed Not Available [facility] 09/14/2019 02:18:32 Influenza, split virus, trivalent, preservative 1 completed Not Available [facility] 04/22/2020 15:49:16 Influenza, split virus, quadrivalent, PF 5 completed Not Available [facility] 09/14/2019 02:35:43 influenza, unspecified formulation 3 completed Not Available [facility] 04/22/2020 15:49:17 Influenza, split virus, trivalent, PF 4 completed Not Available [facility] 04/22/2020 15:49:17 Influenza, split virus, quadrivalent, PF 7 completed Not Available [facility] 09/14/2019 02:22:00 Influenza, split virus, quadrivalent, PF 8 completed Not Available [facility] 09/14/2019 02:33:43 influenza, unspecified formulation 6 completed Not Available [facility] 04/22/2020 15:49:17 Influenza, split virus, trivalent, preservative 0 completed Not Available [facility] 09/14/2019 02:27:45 Influenza, split virus, quadrivalent, preservative 9 completed Not Available [facility] 04/22/2020 15:49:16 Influenza, split virus, quadrivalent, preservative 0 completed Akanksha García LPN [facility] 07/03/2020 15:33:35 Past Encounters Encounter ID Performer Location Encounter Start Date Encounter Closed Date Diagnosis/Indication Diagnosis SNOMED-CT Code Diagnosis ICD10 Code Diagnosis Note [id number] [facility], [address] [place] [address] 08/31/2000 12:00:00 09/17/2008 02:02:29 [id number] [facility], [address] [place] [address] 01/30/2001 08:30:00 09/17/2008 02:02:29 [id number] [facility], OFFICE [address] [facility] [place] [address] 06/27/2001 10:30:00 09/17/2008 02:02:29 [id number] , [facility], OFF[address] [facility] [address] [place] [address] 06/28/2001 13:45:00 09/17/2008 02:02:29 [id number] , [facility], OFFICE [address] [facility] [address] [place] [address] 05/06/2002 07:56:40 09/17/2008 02:02:29 [id number] Radiology , [facility] [address] [facility] [place] [address] 11/12/2002 12:06:57 09/17/2008 02:02:29 [id number] Radiology , [facility] [address] [place] [address] 11/12/2002 00:00:00 09/17/2008 02:02:29 [id number] , [facility], [address] [place] [address] 11/12/2002 11:26:14 09/17/2008 02:02:29 [id number] , [facility], [address] [place] [address] 09/19/2003 10:00:51 09/19/2003 11:01:38 [id number] , [facility], [address] [place] [address] 09/25/2003 09:53:58 09/26/2003 09:25:43 [id number] Physical Therapy, [facility] [address] [place] [address] 09/29/2003 10:55:23 09/29/2003 11:59:32 [id number] , [facility], [address] [place] [address] 12/22/2003 15:04:49 12/23/2003 08:00:50 [id number] LAB - [facility] [address] [place] [address] 12/26/2003 08:12:46 12/26/2003 08:12:50 [id number] , [facility], [address] [place] [address] 01/28/2004 09:10:01 01/28/2004 11:25:49 [id number] , [facility], [address] [place] [address] 08/04/2004 12:08:16 08/04/2004 17:19:33 [id number] Radiology , [facility] [place] 08/04/2004 12:52:54 08/05/2004 08:55:58 [id number] Radiology , [facility] [place] 6 08/04/2004 00:00:00 09/17/2008 02:02:29 [id number] Physical Therapy, [facility] [place] 6 08/13/2004 09:54:10 08/13/2004 10:40:39 [id number] Physical Therapy, [facility] [place] 6 08/18/2004 09:53:57 08/18/2004 14:05:49 [id number] Physical Therapy, [facility] [place] 6 08/30/2004 08:15:05 08/30/2004 13:44:43 [id number] , [facility], [address] [place] 6 02/14/2005 09:49:23 02/14/2005 11:27:24 [id number] , [facility], OFF[address] [place] 6 02/21/2005 08:39:39 02/21/2005 15:34:37 [id number] , [facility], [address] [place] [address] 09/13/2005 09:22:44 09/17/2008 02:02:29 [id number] [facility], [address] [place] [address] 11/10/2005 10:36:53 09/17/2008 02:02:29 [id number] Radiology , [facility] [place] [address] 11/10/2005 11:14:19 09/17/2008 02:02:29 [id number] Radiology , [facility] [address] 11/11/2005 00:00:00 09/17/2008 02:02:29 [id number] Radiology , [facility] [place] [address] 01/09/2006 11:25:54 09/17/2008 02:02:29 [id number] LAB - [facility] [address] [place] [address] 01/09/2006 11:33:44 01/09/2006 11:33:57 [id number] [facility], [address] [place] [address] 01/09/2006 10:15:48 01/11/2006 08:16:20 [id number] LAB - [facility] [address] [place] [address] 01/09/2006 00:00:00 09/17/2008 02:02:29 [id number] LAB - [facility] [address] [place] [address] 01/13/2006 08:01:57 01/13/2006 08:02:06 [id number] [facility], OFF[address] [place] [address] 09/19/2006 11:01:04 09/20/2006 08:54:35 [id number] LAB - [facility] [place] [address] 10/05/2006 07:44:39 10/05/2006 07:44:42 [id number] LAB - [facility] [place] [address] 03/08/2007 07:22:27 03/08/2007 07:22:32 [id number] [facility], OFF[address] [place] [address] 03/13/2007 14:13:23 03/14/2007 09:13:23 [id number] [facility] [address] 04/19/2007 14:42:34 04/19/2007 17:21:02 [id number] [facility], OFF[address] [place] [address] 05/22/2007 12:04:54 05/24/2007 12:29:55 [id number] LAB - [facility] [place] [address] 06/14/2007 07:13:08 06/14/2007 07:13:11 [id number] [facility], [address] [place] [address] 07/08/2007 12:20:28 07/08/2007 12:20:31 [id number] [facility], [address] [place] [address] 08/24/2007 07:51:59 09/17/2008 02:02:29 [id number] LAB - [facility] [place] 6 08/24/2007 08:19:04 08/24/2007 08:19:10 [id number] [facility] [address] [place] 6 10/30/2007 09:20:49 10/31/2007 09:30:34 [id number] [facility], OFFICE [address] [place] 6 10/30/2007 08:15:21 09/17/2008 02:02:29 [id number] [facility], OFFICE [address] [place] 6 02/07/2008 10:10:02 09/17/2008 02:02:29 [id number] LAB - [facility] [place] 6 02/11/2008 07:18:49 02/11/2008 07:18:59 [id number] [facility], OFFICE [address] [place] 6 04/17/2008 15:05:02 09/17/2008 02:02:29 [id number] LAB - [facility] [place] 6 06/05/2008 06:40:08 06/05/2008 06:40:19 [id number] [facility], OFFICE [address] [place] 6 03/24/2009 14:47:29 03/27/2009 11:27:17 [id number] LAB - [facility] [place] 6 03/10/2009 06:40:35 03/10/2009 06:41:00 [id number] LAB - [facility] [place] [address] 05/18/2009 06:39:21 05/18/2009 06:39:33 [id number] [facility], OFFICE [address] [id number] 6 11/17/2009 14:35:36 11/18/2009 15:15:32 [id number] [facility], OFFICE [address] [id number] 6 03/10/2010 14:32:33 03/11/2010 13:57:52 [id number] FP, [facility], OFFICE [address] [address] 05/13/2010 08:11:28 05/13/2010 09:16:38 [id number] FP, [facility], OFFICE [address] [address] 05/17/2011 13:39:08 05/17/2011 14:24:18 [id number] Radiology , [facility] [address] [facility] [place] [address] 05/17/2011 14:05:07 05/18/2011 12:09:22 [id number] , [facility], OFFICE [address] [place], [place] [address] 05/24/2011 13:28:21 05/24/2011 13:56:08 [id number] FP, [facility], OFFICE [address] [place], [place] [address] 05/25/2011 11:01:55 05/25/2011 11:45:15 [id number] FP, [facility], OFFICE [address] [facility] [place] [address] 10/10/2011 08:07:56 10/13/2011 08:16:56 [id number] Catarina Caballero MD , [facility], OFFICE [address] [facility] [place] [address] 11/10/2011 13:37:11 11/10/2011 14:46:31 [id number] FP, [facility], OFFICE [address] [place] [address] 11/22/2011 07:52:36 11/22/2011 08:35:34 [id number] FP, [facility], OFFICE [address] [place] [place] [address] 04/19/2012 09:24:37 04/19/2012 10:01:13 [id number] Physical Therapy, [facility] [address] [place] [address] 04/24/2012 11:51:01 04/24/2012 15:02:24 [id number] FP, [facility], OFFICE [address] [facility] [place] [address] 05/04/2012 11:22:45 05/07/2012 11:21:56 [id number] Radiology , [facility] [address] [place] [address] 05/04/2012 12:04:33 05/07/2012 09:41:41 [id number] Marce Perea MA , [facility], [address] [place] [address] 09/17/2012 11:45:02 09/17/2012 12:25:25 [id number] Radha cleemnt, PT Physical Therapy, [facility] [address] [place] [address] 09/26/2012 12:11:31 09/26/2012 13:42:45 [id number] Marce Perea MA , [facility], [address] [place] [address] 03/14/2013 11:19:29 03/14/2013 13:28:51 [id number] Catarina Caballero MD , [facility], [address] [place] [address] 03/25/2013 08:40:22 03/25/2013 09:49:05 [id number] Wandamariposa Diez , [facility], [address] [place] [address] 07/18/2013 11:55:16 07/18/2013 14:26:24 Hypothyroidism [id number] Cliff Gibson MD , [facility], [address] [place] [address] 10/28/2013 11:07:38 10/28/2013 13:15:49 General examination of patient [id number] 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 BP within normal. Hearing/vi jeniffer unremarkab le. Urine dipstick within normal. Updated fro 2 years. Hypothyroidism [id number] TSH 0.28 (02/2013). Dose of Levothyrox ine lowered to 88mcg po daily in 02/2013. Subsequent TSH 1.04 (04/2013). Continue current medication . No significan t weight fluctuance s. No heat/cold intoleranc e. 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 367846033 Pre-surger y evaluation [id number] Catarina Caballero MD , [facility], [address] [place] [address] 04/09/2014 11:18:30 04/09/2014 12:20:48 Adult health examination [id number] see Risk Assessment and Lifestyle Change Counseling section above Counseling [id number] Mixed hyperlipidemia 404468119 Cholestdanielito younger is at goal Continue to work on diet and exercise as discussed 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 033036314 Hypothyroidism 96433916 [id number] , [facility], [address] [place] [address] 11/20/2014 13:38:12 11/20/2014 14:24:31 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 901126819 Excessive flatus 92758815 Itching of skin 411817964 Allergic rhinitis 34346318 [id number] Pauline Delarosa CMA , [facility], [address] [place] [address] 04/24/2015 11:19:37 04/24/2015 12:36:45 Adult health examination 676273869 see Risk Assessment and Lifestyle Change Counseling section above Counseling 053945538 Influenza vaccine needed [id number] 106 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 267663902 Hypothyroidism 79327850 [id number] Catarina Caballero MD , [facility], [address] [place] [address] 12/07/2015 08:19:18 12/07/2015 09:26:52 Screening for disorder 407647848 Z11.59 Unexplaine d weight loss 919460175 R63.4 Injury of wrist 86148730 3 S69.81XD [id number] JOSTIN Fleming , [facility], [address] [place] [address] 03/04/2016 07:49:29 03/04/2016 08:51:34 Pain in eye 63394887 H57.12 [id number] Olvin Olson, [facility], [facility] [address] [place] [address] 03/04/2016 09:25:47 03/04/2016 10:03:37 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 H18.832 small abrasion inferiorly [id number] Catarina Caballero MD , [facility], [address] [place] [address] 04/04/2016 08:21:34 04/04/2016 08:56:36 Ganglion/synovial cyst - hand 941135618 M67.542 [id number] Catarina Caballero MD , [facility], [address] [place] [address] 09/15/2016 09:35:32 09/15/2016 10:27:50 Serous otitis media 44451771 H65.91 [id number] JOSTIN Fleming , [facility], [address] [place] [address] 09/29/2016 13:18:18 09/29/2016 14:06:55 Headache 14010210 R51 [id number] Amandeep Pimentel PA-C , [facility], [address] [place] [address] 02/24/2017 07:39:53 03/01/2017 14:14:43 Unintentional weight loss 188495236 R63.4 Will do standard workup, plus peripheral smear. [id number] Catarina Caballero MD , [facility], [address] [place] [address] 03/17/2017 14:42:02 03/17/2017 15:46:18 Adult health examination 910238877 Z00.00 see Risk Assessment and Lifestyle Change Counseling section above Counseling 174541501 Z71 .9 Hyperthyroidism 09662306 E05.90 Unexplaine d weight loss 492454924 R63.4 Polyuria 35263155 R35.8 [id number] Elizabeth Howard MA , [facility], [address] [place] [address] 05/12/2017 11:25:35 05/15/2017 08:13:50 Active or passive immunization 197156129 Z23 [id number] Catarina Caballero MD , [facility], [address] [place] [address] 06/16/2017 08:37:14 06/16/2017 10:18:15 Former heavy tobacco smoker [id number] Z87.274 [id number] Catarina Caballero MD , [facility], [address] [place] [address] 08/14/2017 13:58:25 08/15/2017 08:40:58 Sciatica 79730479 M54.32 [id number] Kristian Garcia MD Sports Medicine, [facility] [address] [place] [address] 08/31/2017 07:24:07 08/31/2017 09:04:19 Hip pain 13002900 M25.402 Warren is a 57-year-ol d male with left hip pain that I believe is most consistent with greater trochanter ic pain syndrome. He does have some limitation in internal rotation concerning for hip osteoarthr itis but no reproducib le pain with FADIR testing concerning for intra-leif cular pathology. I had an extensive discussion with him regarding his diagnosis as well as discussing treatment options. I stressed to him the importance of physical therapy to long-term symptom relief. We also discussed injection therapy as well as the use of NSAID medication . He has been using NSAID with little relief of symptoms. He did have a corticoste roid injection approximat humphrey 3 weeks ago by his primary care doctor but this was done at palpation guidance it may not truly up in within the bursa. Due to his persistent symptoms a decision was made to perform a left hip trochanter ic bursa corticoste roid injection under ultrasound guidance. He tolerated this well about complicati on. I have advised the ice and rest his hip for the next week. He would and gradually resume normal activities . He was given a referral to physical therapy call to set up an appointmen t. I did discuss with him hip joint x-rays she has chosen to defer today. He will follow up with me on an as-needed basis for further care. [id number] Catarina Caballero MD , [facility], [address] [place] [address] 08/31/2017 09:04:37 08/31/2017 10:14:21 Unexplained weight loss 719989319 R63.4 Screening for malignant neoplasm of colon 901165559 Z12.11 Referral for a DIRECT booked colonoscop y. This patient is a healthy ASA Class 1 or 2 patient (only mild systemic disease), or a STABLE, well controlled insulin dependent diabetic. They do not have serious cardiac disease ie HI/angiopl asty within 1 year, symptomati c CHF; renal failure with CKD 4 or 5; take Coumadin, Plavix, Aggrenox, etc. Mood swings 11644280 R45 .86 [id number] Edgar Palma MD Endocrino log, [address] [address] 09/29/2017 07:30:44 09/29/2017 08:13:53 Abnormal weight gain 492778396 R63.5 Hypothyroidism 34959079 E03.9 -synthroid 88mcg by mouth once daily Adrenal mass 548649649 R 19.09 It would be helpful to assess for hormone production of the adrenal mass. -test dehydroepi androstero ne sulfate (DHEAS) to assess for excess androgen production .-test urine metanephri leena and catecholam scarlett will test for adrenaline excess (pheochrom ocytoma). -1 to 2 weeks later:A low dose 1mg overnight dexamethas one suppressio n test would be helpful to assess for Kin's syndrome. A cortisol exceeding 5mcg/dL with an in range dexamethas one level would support clinically significan t glucocorti coid secretory activity. 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 This will help us test you for Kin's syndrome. -6mo ct adrenal repeat to confirm stability -return as needed [id number] Radha Blake RD, LDN Nutrition -[address] [address] 10/03/2017 07:48:05 10/03/2017 09:09:42 Abnormal weight loss 831012027 R63.4 Nutrition Diagnosis: {{ Excessive carbohydra te intake (NI 5.8.2)# Ex cessive oral intake (NI 2.2) Excessive fat intake (NI 5.6.2) Inappropri ate Intake of fats (NI 5.6.3) Excessive carbohydra te intake (NI 5.8.2) Inappropri ate intake of types of carbohydra te (NI 5.8.3) Inconsiste nt carbohydra te intake (NI 5.8.4) Inadequate fiber intake (NI 5.8.5) Altered nutrition related laboratory values (NC 2.2) Overweight /obesity (NC 3.3) Unintended weight gain (NC 3.4) Food and nutrition related knowledge deficit (NB 1.1) Not ready for diet/lifes tyle changes (NB 1.3) Self monitoring deficit (NB 1.4) Limited adherence to nutrition related recommenda tions (NB 1.6) Nutrition diagnosis no longer appropriat e}} related to: {{patient' s desire to increase calories in an effort to stop losing weight# fo od and nutrition related knowledge deficit, specifical ly? lack of food planning, purchasing and preparatio n skills psychologi keisha causes, specifical ly? physiologi keisha causes requiring timing and consistenc y of carbohydra dale lack of willingnes s to modify previous nutrition recommenda tions inappropri ate food preparatio n practices inability or unwillingn ess to purchase or consume fiber containing foods economic constraint s that limiting appropriat e foods physical inactivity not ready for diet/lifes tyle changes excessive energy intake lack of prior exposure to accurate nutrition- related informatio n prior exposure to incorrect informatio n inappropri ate intake of concentrat ed sweets and refined carbohydra dale chronic use of medication known to cause weight gain loss of appetite awareness medication s that increase appetite, e.g. unwilling or disinteres jocelynn in reducing lack of or limited access to healthful food choices food and nutrition compliance limitation s}} as evidenced by: high intake of low nutrient density, high sugar/fat/ salt snack foods at night per self reported dietary recall. Assessment : Warren's report of losing 25 lb in past year does not correspond with [facility] [place] over the past 3 years - not as rapid a rate of loss. He feels anxious about why this is happening and wants to gain back to high 170's. Although Warren's BMI reflects a healthy weight for height (24.4), he reports feeling uncomforta ble at this weight which is over 20 lbs lower than most of his lifelong weight. States he gets cold hands, often feels weak. He had a consult with Dr. Palma recently; no discernibl e cause of weight loss has been identified . Food choices overall during the day are balanced with complex carbs and proteins, though he dislikes whole grains. We discussed the nature of many of his evening food choices like several portions of potato chips, whole candy bars, and large volume of nuts and he is open to alternate ways to increase calories. A weight gain up to about 180 would help him feel better and not increase his risk of chronic disease related to overweight . He may be having some blood sugar swings as a result of at times very high carb intake not balanced by sufficient protein and fiber. Reviewed ways for him to increase calories by more frequent eating and more protein, with less accompanyi ng sugars. A goal of about 3000 calories a day is recommende d for weight gain, with about 2500 calories appropriat e for weight maintenanc e. He may benefit from taking vitamin D supplement . Handouts: High protein, high calorie nutrition therapy (nutrition care manual), Thumbs Up booklet, Healthy snacking handout, How to eat right with less sugar (eatright) [id number] Anant Lopez MD , [facility], [address] [place] [address] 11/22/2017 13:12:01 11/22/2017 14:15:08 Plantar fasciitis 377719370 M72.2 Abnormal weight loss 267 573808 R63.4 pt f/u with PCP, discussed BH support with increase stress of not feeling well for prolonged time [id number] Catarina Caballero MD , [facility], [address] [place] [address] 12/14/2017 11:26:12 12/14/2017 13:25:34 [id number] Marianela Stuart DPM Podiatry, [facility] [address] [place] [address] 12/26/2017 13:18:39 12/27/2017 11:25:33 Plantar fasciitis 531687697 M72.2 Etiology explained to pt, prone to this with pes cavus foot type. Pt given instructio ns for stretching excercises , supportive shoegear including handout, icing, nsaids prn pain, orthotics. Cortisone injection was administer ed today. RTC prn. Informed consent was obtained. Left foot was prepped and drapped in the usual aseptic manner. 3cc of 1:1:1 1%lidocain e, 4mg dexmethaso ne phosphate and kenalog 40 injected into left foot plantar fascia at level of medial tubercle of the calcaneous . Pt tolerated procedure well and experience d immediate relief. Foot pain [id number] M79.6 [id number] Catarina Caballero MD , [facility], [address] [place] [address] 01/18/2018 09:15:57 01/19/2018 08:43:09 Sciatica [id number] M54.32 [id number] Ernestina Mcdaniel LPN , [facility], [address] [place] [address] 05/08/2018 11:31:45 05/22/2018 13:26:35 Administration of influenza vaccine [id number] Z23 Active or passive immunization [id number] Z23 [id number] Anant Lopez MD , [facility], [address] [place] [address] 06/08/2018 08:40:24 06/11/2018 08:26:22 Syncope [id number] R55 labs negative for anemia, leukocytos is, holter monitor to schedule. [id number] Laurie Decker , [facility], [address] [place] [address] 06/11/2018 14:11:16 06/27/2018 12:34:11 Syncope [id number] R55 [id number] Osmin Mendoza MD , [facility], [address] [place] [address] 10/01/2018 09:09:26 10/01/2018 09:43:11 Abdominal pain [id number] R10.9 [id number] Catarina Caballero MD , [facility], [address] [place] [address] 04/15/2019 14:38:45 04/16/2019 07:43:30 Adult health examination [id number] Z00.00 see Risk Assessment and Lifestyle Change Counseling section above Counseling [id number] Z71 .9 Depression screening 171 008360 Z13.89 depression screening tool administer ed, entered into emr, scored and discussed, time greater than 7.5 minutes Hyperthyroidism 46552162 E05.90 Pain of le ft shoulder joint [id number] 0200635 M25.512 Inguinal hernia 65200635 0 K40.90 [id number] Phuc Bass, PT Physical Therapy, [facility] [address] [place] [address] 04/22/2019 13:13:57 04/22/2019 15:09:35 Pain of left shoulder joint [id number] M25.512 Pain of ri ght shoulder joint 6908660086 [id number] M25.875 [id number] Cliff Gibson MD , [facility], [address] [place] [address] 11/04/2019 08:18:36 11/04/2019 09:06:20 Unexplained weight loss 620465412 R63.4 Patient presents to discuss his weight loss. Peak weight 205, but in the mid-170's range since 2017. States he cut out soda for the last 2 years. No change in appetite. No change in BM. No diarrhea. Denies BRBPR or melena. No urine obstructiv e symptoms. Denies hematuria. Colonoscop y 09/2017 (adenomato us polyp). Next surveillan ce in 5 years. Denies cough. Denies unexplaine d fever/chil ls. Underlying hypothyroi dism, on Synthroid over 20 years. Has been on the same dose since 2012. Will check FLP, TSH, CMP, CBC, Hgb A1c, Amylase, Lipase and PSA for further evaluation . Indication s for UC/ER use discussed. Follow up in 2 months for weight monitor. Hypercholesterolemia 136 77994 E78.00 Health Concerns Section Related Observation LastModified by Organization Detai ls LastModified Time None Recorded Concern Status LastModified by Organization Details LastModified Time None Recorded Advance Directives Directive Y: given form Payers Encounter Date Sequence Insurance Name Policy Number Policy [place] Covered Member ID Cook Member ID Guarantor Name 06/11/2018 1 [facility] ([facility]) [id number] [employer] [id number] 10/01/2018 1 [place] [facility] [employer] [place] ([facility]) [id number] [employer] [id number] [employer] 04/15/2019 1 [place] [facility] [employer] [place] ([facility]) [id number] [employer] [id number] [employer] 04/22/2019 1 [place] [facility] [employer] [place] ([facility]) [id number] [employer] [id number] [employer] 11/04/2019 1 [place] [facility] [employer] [place] ([facility]) [id number] [employer] [id number] Warren J Amberly Notes Date Note Type Note Provider Name and Address Organization Details Recorded Time 04/15/2019 text/html Physical Exam/MaleReported bypatient.PHAPatient is here for a Wellness Visit. He describes his health status as fair. Patient's health is worse than last year.; soreness in shoulders bilaterally over a year, question of inguinal hernias bilaterally. 59-year-old with treated Graves' disease, hypothyroidism (on therapy), hyperlipidemia, orbital decompression surgery for proptosis here for a physical. Colonoscopy 2018 (adenoma, 5 year)Feeling unable to excercise due to shoulder pain, worse in left shoulder. Has trouble with daily activities/general movement. No problems sleeping.Also worried about a possible hernia, feels a mass around his groin that he can push in. No pain.Frequently wakes up at night, lies in bed very stressed for long periods of time. 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 His exercise limited to walking with and playing with his dog. Catarina Caballero MD [address] [place] [address], [phone], [facility] 04/17/2019 12:02:41 04/22/2019 text/html Intake ReviewedReported bypatient.Patient intake form reviewedwith patient including pain drawing, scale, associated symptoms and functional limitations. Document is scanned into chartPT Initial Eval*Reported bypatient.History:Lu f complaint: (B shoulder pain L > R); Duration: (month or two) Symptom intensity:average 2/10; best 0/10; worst 3/10 Symptom duration:frequently Symptom change:symptoms are not changing Symptom quality:dull Aggravating Factors:pushing/gonsalo g; reaching Alleviating Factors:resting; feels better while active Sleep Status:difficulty sleeping due to pain Prior History:no similar problems in the past; no prior PT for other problems in the past year; no recent hospitalization; not currently taking a blood thinner; no allergy to latex; no falls in the past year Prior Studies:x ray; The joint spaces, mineralization, and alignment are well-maintained. The visualized thorax is normal. A small flake of bone is seen in the soft tissues adjacent to the greater tubercle. Impression: Minimal evidence of calcific tendinitis Prior Treatments:none Work:retired Activities/Hobbies/Exe rcise:stopped due to pain Associated Symptoms:at the present time the patient views their health status as fair Functional Scores:OPTIMAL global score: 37/110; patient identified functional limitations 2/5 able to do with little difficulty (pushing/pulling); patient identified functional limitations 2/5 able to do with little difficulty (reaching); patient identified functional limitations 2/5 able to do with little difficulty (lifting/carrying) Phuc Bass, PT [address] [place], [phone], [facility] 04/22/2019 14:29:12 11/04/2019 text/html Patient presents to discuss his weight loss. Here due to prompting of his . His weight is actually stable for 2 years. He states his home scale has 10 lbs discrepancy from the office measure today. Peak weight 205, but in the mid-170's range since 2017. States he cut out soda for the last 2 years. Still concerned of his subjective weight loss. Would like lab work done. No change in appetite. No change in BM. No diarrhea. Colonoscopy 09/2017 (adenomatous polyp). Next surveillance in 5 years. Denies any hematuria. Denies cough. Denies unexplained fever/chills. Underlying hypothyroidism, on Synthroid over 20 years. Has been on the same dose since 2013. Cliff Gibson MD [address] [place], [phone], [facility] 11/04/2019 18:34:54
[2024-10-09 13:42] LABS: MANUAL DIFF FLAG NO
[2024-10-09 14:01] LABS: Basophils Absolute Auto 0.1 X10*3/uL (0.0-0.2); Eosinophils Absolute Auto 0.3 X10*3/uL (0.0-0.4); Eosinophils Percent Auto 4.5 % (0-4); Hematocrit 38.6 % (42.0-52.0); Hemoglobin 13.4 g/dl (14.0-18.0); Imm Gran Abs Auto 0.02 X10*3/uL (0.00-0.03); Imm Gran Pct Auto 0.3 % (0.0-0.4); Lymphocytes Absolute Auto 1.9 X10*3/uL (1.2-4.9); Lymphocytes Percent Auto 30.2 % (20-40); Mean Corpuscular HGB Conc 34.7 g/dl (31.0-36.0); Mean Corpuscular Hemoglobin 32.1 pg (27.0-33.0); Mean Corpuscular Volume 92.6 fL (80.0-98.0); Mean Platelet Volume 9.3 fL (9.4-12.4); Monocytes Absolute Auto 0.4 X10*3/uL (0.1-1.2); Monocytes Percent Auto 6.1 % (2-11); Neutrophils Absolute Auto 3.6 x10*3/uL (2.0-8.3); Neutrophils Percent Auto 57.9 % (45-73); Platelet Count 301 X10*3/uL (160-400); Red Blood Count 4.17 X10*6/uL (4.60-5.80); Red Cell Distribution Width 12.4 % (11.0-16.0); White Blood Count 6.2 X10*3/uL (4.8-10.8)
[2024-10-09 14:13] LABS: Estimated Average Glucose 114 mg/dL; Hemoglobin A1C 131.1631 umol/L; Hemoglobin A1c % 5.6 % (<6.0); Total Hemoglobin (HGBA1C) 3520.1466 umol/L
[2024-10-09 14:45] LABS: Alanine Aminotransferase 14 U/L (0-40); Alkaline Phosphatase 60 U/L (39-117); Anion Gap 13 (12-20); Aspartate Amino Transferase 20 U/L (5-37); Bilirubin Total 0.5 mg/dL (0.0-1.0); Blood Urea Nitrogen 15 mg/dL (9-16); Carbon Dioxide 24 mmol/L (22-29); Chloride 108 mmol/L (96-108); Cholesterol 199 mg/dL (<200); Estimated Glomerular Filt Rate > 60; Glucose Random 159 mg/dL (60-115); HDL Cholesterol 49 mg/dL (>40); Iron 70 mcg/dL (45-160); LDL Cholesterol Calculated 119 mg/dL (<100); Percent Iron Saturation 27 % (15-50); Potassium 4.5 mmol/L (3.3-5.1); Sodium 140 mmol/L (135-145); Total Iron Binding Capacity 256 mcg/dL (228-428); Total Protein 6.7 g/dL (6.5-8.0); Triglycerides 155 mg/dL (<150); Unsaturated Iron Binding 186 ug/dL
[2024-10-09 14:50] LABS: Ferritin 198 ng/mL (20-250); T4 Thyroxine 4.7 ug/dL (4.5-12.0); Thyroid Stimulating Hormone 1.64 uIU/mL (0.32-4.0)
== END 2024-10-09 11:29 | disposition home or self-care (01) ==
LOC: HO.MANLDS 11:28
PROVIDERS: Visit Provider Physician Assistant
DX: Z13.1 Encounter for screening for diabetes mellitus (principal); E78.2 Mixed hyperlipidemia; E05.90 Thyrotoxicosis, unspecified without thyrotoxic crisis or storm
CPT/HCPCS: 36415; 80053; 80061; 82728; 83036; 83540; 84436; 84443; 85025